=== PATIENT | female | born 1995 | race American Indian/Alaskan Native ===

== ENCOUNTER 2019-03-15 04:57 | Emergency (ER) | payer MEDICAID ==
[2019-03-15 05:05] VITALS: BP 101/51
[2019-03-15] MEDS ORDERED: REGLAN IV ONE (05:50)
[2019-03-15] MEDS ORDERED: PEPCID IV ONE (05:51)
[2019-03-15] MEDS ORDERED: NACL 0.9% 1000 ML 1,000 ML IV ONE (05:51)
[2019-03-15] MEDS ORDERED: TYLENOL PO ONE (05:51)
[2019-03-15 06:18] LABS: Basophils % (Auto) 0.7 % (0.0-1.8); Eosinophils % (Auto) 0.2 % (0.0-4.3); Hematocrit 32.5 % (30.3-42.9); Hemoglobin 11.3 gm/dl (10.1-14.3); Lymphocytes % (Auto) 22.5 % (13.4-35.0); Mean Corpuscular HGB Conc 35 % (30-34); Mean Corpuscular Volume 88 fl (79-97); Monocytes # (Auto) 0.4 K/mm3 (0.0-0.8); Monocytes % (Auto) 9.4 % (0.0-7.3); Red Blood Count 3.68 M/mm3 (3.65-5.03); Red Cell Distribution Width 12.9 % (13.2-15.2)
[2019-03-15 06:19] LABS: Platelet Count 99 K/mm3 (140-440)
--- NOTE | 2019-03-15 06:43 | Emergency Department Report ---
ED General Adult HPI - General Chief complaint: Chest Pain Stated complaint: 16 WEEKS PREG/CHEST PAIN Time Seen by Provider: 03/15/19 05:45 Source: patient, EMS Mode of arrival: Ambulatory Limitations: No Limitations - History of Present Illness Initial comments: Patient is a [age]-year-old -[place] female who is approximately 16 weeks gestation who presents to the ED with acute onset persistent nasal and sinus congestion, dry cough, left-sided chest wall pain with intermittent nausea and vomiting for the last 2 days. Patient states that she has not been able to keep anything down and therefore has not been able to eat in the last 12 hours because of persistent nausea and vomiting. Patient denies shortness of breath, abdominal pain, vaginal bleeding, dysuria, urinary frequency and urgency, dizziness, headache, fever, chills, change in vision or sore throat. MD Complaint: Nausea, vomiting, chest pain, cough -: Sudden, days(s) (2) Location: chest Radiation: non-radiation Severity scale (0 -10): 5 Quality: aching, sharp Improves with: none Worsens with: movement Associated Symptoms: denies other symptoms, chest pain, cough, loss of appetite, malaise, nausea/vomiting. denies: confusion, diaphoresis, fever/chills, headaches, rash, seizure, shortness of breath, syncope, weakness Treatments Prior to Arrival: none - Related Data Previous Rx's Medication Instructions Recorded Last Taken Type Promethazine [Phenergan] 25 mg PO Q6HR PRN #30 tab 03/15/19 Unknown Rx Promethazine [Phenergan] 25 mg [place] Q6HR PRN #20 supp.rect 03/15/19 Unknown Rx Ranitidine HCl [Zantac] 150 mg PO Q12H #30 tablet 03/15/19 Unknown Rx Allergies Allergy/AdvReac Type Severity Reaction Status Date / Time Latex, Natural Rubber Allergy Swelling Verified 10/27/14 23:43 ED Review of Systems ROS: Stated complaint: 16 WEEKS PREG/CHEST PAIN Other details as noted in HPI Constitutional: denies: chills, fever Eyes: denies: eye pain, eye discharge, vision change ENT: denies: ear pain, throat pain Respiratory: cough. denies: shortness of breath, wheezing Cardiovascular: chest pain. denies: palpitations Endocrine: no symptoms reported Gastrointestinal: nausea, vomiting. denies: abdominal pain, diarrhea Genitourinary: denies: urgency, dysuria, discharge Musculoskeletal: denies: back pain, joint swelling, arthralgia Skin: denies: rash, lesions Neurological: denies: headache, weakness, paresthesias Psychiatric: denies: anxiety, depression Hematological/Lymphatic: denies: easy bleeding, easy bruising ED Past Medical Hx - Past Medical History Hx Hypertension: Yes (Pre eclampsia) Hx Congestive Heart Failure: No Hx Diabetes: No Hx Deep Vein Thrombosis: No Hx Renal Disease: No Hx Sickle Cell Disease: No Hx Seizures: No Hx Asthma: No Hx COPD: Yes Hx HIV: No - Surgical History Past Surgical History?: No - Social History Smoking Status: Never Smoker Substance Use Type: None - Medications Home Medications: Home Medications Medication Instructions Recorded Confirmed Last Taken Type Promethazine [Phenergan] 25 mg PO Q6HR PRN #30 tab 03/15/19 Unknown Rx Promethazine [Phenergan] 25 mg [place] Q6HR PRN #20 supp.rect 03/15/19 Unknown Rx Ranitidine HCl [Zantac] 150 mg PO Q12H #30 tablet 03/15/19 Unknown Rx ED Physical Exam - General Limitations: No Limitations General appearance: alert, in no apparent distress - Head Head exam: Present: atraumatic, normocephalic, normal inspection - Eye Eye exam: Present: normal appearance, PERRL, EOMI. Absent: scleral icterus Pupils: Present: normal accommodation - ENT ENT exam: Present: normal exam, normal orophraynx, mucous membranes moist, TM's normal bilaterally, normal external ear exam - Neck Neck exam: Present: normal inspection, full ROM. Absent: tenderness - Respiratory Respiratory exam: Present: normal lung sounds bilaterally, chest wall tenderness (Palpable left sided chest wall tenderness). Absent: respiratory distress, wheezes, rales, rhonchi, accessory muscle use - Cardiovascular Cardiovascular Exam: Present: regular rate, normal rhythm, normal heart sounds. Absent: systolic murmur, diastolic murmur, rubs, gallop - GI/Abdominal GI/Abdominal exam: Present: soft, normal bowel sounds. Absent: distended, tenderness, guarding, hyperactive bowel sounds, hypoactive bowel sounds, organomegaly, mass, bruit - Rectal Rectal exam: Present: deferred - Extremities Exam Extremities exam: Present: normal inspection, full ROM, normal capillary refill - Back Exam Back exam: Present: normal inspection, full ROM. Absent: tenderness, CVA tenderness (R), CVA tenderness (L), muscle spasm, paraspinal tenderness, vertebral tenderness - Neurological Exam Neurological exam: Present: alert, oriented X3, CN II-XII intact, normal gait. Absent: motor sensory deficit, reflexes normal - Psychiatric Psychiatric exam: Present: normal affect, normal mood - Skin Skin exam: Present: warm, dry, intact, normal color. Absent: rash ED Course Vital Signs 03/15/19 05:01 Temperature 98.3 F Pulse Rate 100 H Respiratory 18 Rate Blood Pressure 101/51 O2 Sat by Pulse 99 Oximetry - Reevaluation(s) Reevaluation #1: 03/15/19 06:44 Patient is alert and oriented 3 and is not in distress with normal vital signs. EKG shows normal sinus rhythm with ventricular rate of 97 bpm, and no ST or T- wave abnormalities. Labs were drawn and patient returns for nausea and vomiting and pain in the ED. Will review the lab test results and to the patient's symptoms since the chest pain is reproducible on physical exam. Reevaluation #2: 03/15/19 07:18 On reevaluation, the patient has not had any nausea and vomiting in the ED after being treated with antiemetics. Patient past oral fluid challenge. Laboratory results were reviewed and are all unremarkable except for mild hyponatremia and hypokalemia. Patient also received Klor-Con 40 mEq by mouth to mitigate the hypokalemia. On reevaluation, patient feeling better and stronger and was discharged home on medications including antiemetics and, antacids and advised follow-up in [facility] or PCP in 2 days for reevaluation. Patient advised to return to the ED immediately if symptoms get worse. ED Medical Decision Making - Lab Data Result diagrams: 03/15/19 05:55 03/15/19 05:58 - EKG Data EKG shows normal: sinus rhythm Rate: normal - EKG Data Interpretation: normal EKG - Medical Decision Making Patient is alert and oriented 3 and is not in distress with normal vital signs. EKG shows normal sinus rhythm with ventricular rate of 97 bpm, and no ST or T- wave abnormalities. Labs were drawn and patient returns for nausea and vomiting and pain in the ED. Will review the lab test results and to the patient's symptoms since the chest pain is reproducible on physical exam. 0715: On reevaluation, the patient has not had any nausea and vomiting in the ED after being treated with antiemetics. Patient past oral fluid challenge. Laboratory results were reviewed and are all unremarkable except for mild hyponatremia and hypokalemia. Patient also received Klor-Con 40 mEq by mouth to mitigate the hypokalemia. On reevaluation, patient feeling better and stronger and was discharged home on medications including antiemetics and, antacids and advised follow-up in [facility] or PCP in 2 days for reevaluation. Patient advised to return to the ED immediately if symptoms get worse. - Differential Diagnosis Hyperemesis Gravidarum; Acute costochondritis, acute bronchitis Critical care attestation.: If time is entered above; I have spent that time in minutes in the direct care of this critically ill patient, excluding procedure time. ED Disposition Clinical Impression: Hyperemesis gravidarum, antepartum, Acute costochondritis Disposition: TO HOME OR SELFCARE Is pt being admited?: No Does the pt Need Aspirin: No Condition: Stable Instructions: Hyperemesis Gravidarum (ED), Costochondritis (ED), Gastroesophageal Reflux Disease (ED) Additional Instructions: MAINTAIN A CLEAR LIQUID DIET FOR 12- 24 HOURS, AND FOLLOW UP WITH YOUR [facility] PHYSIC[facility] IN 2 DAYS FOR REEVALUATION. RETURN TO THE ED IMMEDIATELY IF SYMPTOMS GET WORSE. Prescriptions: Promethazine [Phenergan] 25 mg PO Q6HR PRN #30 tab PRN Reason: Nausea Promethazine [Phenergan] 25 mg [place] Q6HR PRN #20 supp.rect PRN Reason: Nausea Ranitidine HCl [Zantac] 150 mg PO Q12H #30 tablet Time of Disposition: 07:24 Print Language: KHMER
[2019-03-15 06:44] LABS: Alanine Aminotransferase 11 units/L (7-56); Albumin 3.5 g/dL (3.9-5); BUN/Creatinine Ratio 13; Blood Urea Nitrogen 5 mg/dL (7-17); Calcium 8.5 mg/dL (8.4-10.2); Hemolysis Index 5
[2019-03-15 07:01] LABS: Bilirubin,Urine NEG (Negative); Blood,Urine NEG (Negative); Mucus,Urine 3+ /HPF; Urobilinogen,Urine < 2.0 mg/dL (<2.0)
[2019-03-15 07:02] LABS: Color,Urine Yellow (Yellow)
[2019-03-15] MEDS ORDERED: K-DUR PO ONE (07:15)
== END 2019-03-15 07:40 | disposition home or self-care (01) ==
LOC: ED 04:57
DX: O21.0 Mild hyperemesis gravidarum (principal); O26.892 Other specified pregnancy related conditions, second trimester; M94.0 Chondrocostal junction syndrome [Tietze]; O99.512 Diseases of the respiratory system complicating pregnancy, second trimester; J44.9 Chronic obstructive pulmonary disease, unspecified; O11.2 Pre-existing hypertension with pre-eclampsia, second trimester; Z91.040 Latex allergy status; Z91.09 Other allergy status, other than to drugs and biological substances; Z3A.16 16 weeks gestation of pregnancy
CPT/HCPCS: 36415; 80053; 81001; 84484; 85025; 93005; 93010; 96361; 96374; 96375; 99284; J2765; J7030

== ENCOUNTER 2019-06-12 19:34 | Outpatient (CLI) | payer MEDICAID ==
[2019-06-12 19:43] VITALS: BP 135/79
== END 2019-06-13 01:09 | disposition home or self-care (01) ==
LOC: TRG 19:34
PROVIDERS: ATTEND Obstetrics & Gynecology
DX: O26.893 Other specified pregnancy related conditions, third trimester (principal); R10.2 Pelvic and perineal pain; Z3A.29 29 weeks gestation of pregnancy
CPT/HCPCS: 59025; 85461; 86850; 86900; 86901; J2790

== ENCOUNTER 2019-07-13 14:12 | Outpatient (CLI) | payer MEDICAID ==
[2019-07-13 14:30] VITALS: BP 131/79
[2019-07-13] MEDS ORDERED: LACTATED RINGERS 500 ML IV ONE (14:35)
[2019-07-13 15:24] LABS: Bilirubin,Urine NEG (Negative); Blood,Urine NEG (Negative); Color,Urine Yellow (Yellow); Mucus,Urine 2+ /HPF
== END 2019-07-13 15:32 | disposition home or self-care (01) ==
LOC: TRG 14:12
PROVIDERS: ATTEND Obstetrics & Gynecology
DX: O26.893 Other specified pregnancy related conditions, third trimester (principal); Z3A.33 33 weeks gestation of pregnancy
CPT/HCPCS: 81001

== ENCOUNTER 2019-07-25 18:21 | Observation (INO) | payer MEDICAID ==
[2019-07-25] MEDS ORDERED: LACTATED RINGERS 1,000 ML IV ONE (19:05)
[2019-07-25 20:11] LABS: Basophils % (Auto) 0.5 % (0.0-1.8); Eosinophils % (Auto) 0.4 % (0.0-4.3); Hematocrit 35.1 % (30.3-42.9); Hemoglobin 12.1 gm/dl (10.1-14.3); Lymphocytes # (Auto) 1.5 K/mm3 (1.2-5.4); Lymphocytes % (Auto) 19.5 % (13.4-35.0); Mean Corpuscular HGB Conc 34 % (30-34); Mean Corpuscular Volume 90 fl (79-97); Monocytes # (Auto) 0.4 K/mm3 (0.0-0.8); Platelet Count 100 K/mm3 (140-440); Red Cell Distribution Width 13.9 % (13.2-15.2)
[2019-07-25 20:31] LABS: Alanine Aminotransferase 5 units/L (7-56); Albumin 3.2 g/dL (3.9-5); BUN/Creatinine Ratio 20; Blood Urea Nitrogen 8 mg/dL (7-17); Calcium 8.5 mg/dL (8.4-10.2); Hemolysis Index 82
[2019-07-25 21:24] LABS: Bacteria,Urine 2+ /HPF (Negative); Bilirubin,Urine NEG (Negative); Blood,Urine NEG (Negative); Color,Urine Yellow (Yellow); Mucus,Urine 2+ /HPF
[2019-07-25] MEDS ORDERED: ACETAMINOPHEN 325 MG TAB PO PRN (22:38)
--- NOTE | 2019-07-26 00:28 | Ultrasound Report ---
Limited OB ultrasound with biophysical profile. 07/25/2019. HISTORY: Evaluate DELILAH. FINDINGS: A single viable intrauterine has heart tones at 169 bpm. DELILAH is normal emil uring 12.3 cm. Biophysical profile is normal at 8 of 8. IMPRESSION: 1. Normal DELILAH of 12.3 cm. 2. Normal biophysical profile of 8 of 8. Signer Name: Anshul Menezes MD Signed: 07/26/2019 12:24 AM Workstation Name: [employer]
--- NOTE | 2019-07-26 00:44 | History and Physical Report ---
History of Present Illness Date of examination: 07/26/19 Date of admission: 07/26/19 00:39 Chief complaint: Elevated blood pressure in triage. History of present illness: 24 year old presents to L&D with possible contractions and elevated blood pressure. Patient reports active movement. Patient denies vaginal bleeding or abdominal pain. Irregular mild contractions: resolved after IV hydration. Patient receives care at [facility] and was able to access records via computer. LMP 11/18/18. EDC 08/25/19, confirmed with 10 week US. significant for the following: Obesity (BMI 40), anemia (supplemented with iron), history of preeclampsia with her last (on LDA therapy), Rh negative, vitamin D deficiency (supplemented with vitamin D), UTI (treated with Augmentin), gestational thrombocytopenia. labs are as follows: O negative, antibody screen negative, rubella immune, hepatitis B surface antigen negative, HIV negative, chlamydia negative, gonorrhea negative, trichomonas negative, varicella nonimmune, hemoglobin electrophoresis normal, pap smear normal, GBS pending. Past History Past Medical History: other (obesity, history of preeclampsia with a previous ) Past Surgical History: no surgical history [facility] History: denies: abnormal PAP smear, chlamydia, gonorrhea, hepatitis B, hepatitis C, herpes, HIV, syphilis, trichomonas Family/Genetic History: none Social history: lives with family, full code. denies: smoking, alcohol abuse, prescription drug abuse, IV drug use - Obstetrical History Expected Date of Delivery: 08/25/19 Actual Gestation: 35 Week(s) 5 Day(s) : 3 Para: 1 Hx # Term Pregnancies: 0 Number of Pregnancies: 1 Spontaneous Abortions: 1 Induced : 0 Number of Living Children: 1 Medications and Allergies Allergies Allergy/AdvReac Type Severity Reaction Status Date / Time Latex, Natural Rubber Allergy Swelling Verified 07/25/19 18:34 Home Medications Medication Instructions Recorded Confirmed Last Taken Type Promethazine [Phenergan] 25 mg PO Q6HR PRN #30 tab 03/15/19 07/25/19 Unknown Rx Promethazine [Phenergan] 25 mg [place] Q6HR PRN #20 supp.rect 03/15/19 07/25/19 Un known Rx raNITIdine HCl [Zantac] 150 mg PO Q12H #30 tablet 03/15/19 07/25/19 Unknown Rx Aspirin [Adult Aspirin] 81 mg PO DAILY 07/25/19 07/25/19 07/25/19 History Vit-Fe Fumar-FA [ 1 tab PO DAILY 07/25/19 07/25/19 07/25/19 History Vitamin] Active Meds: Active Medications Acetaminophen (Tylenol) 650 mg PO Q4H PRN PRN Reason: Pain MILD(1-3)/Fever >100.5/VIRK Multivitamins/Iron/Calcium ( Vitamin) 1 each PO QDAY CHIO Review of Systems Constitutional: no night sweats, no malaise Eyes: no blurred vision, no loss of vision Ears, nose, mouth and throat: headache (mild headache) Cardiovascular: no edema, no syncope, no dyspnea on exertion, no leg edema Respiratory: no cough, no shortness of breath Gastrointestinal: no nausea, no vomiting Genitourinary: contractions, no genital sores Neurological: no weakness, no numbness - Vital Signs Vital signs: Vital Signs Temp Resp Pulse Ox 98.1 F 16 98 07/25/19 18:51 07/25/19 18:51 07/25/19 18:51 Temp Pulse Resp BP Pulse Ox 98.1 F 79 16 138/96 100 07/25/19 18:51 07/25/19 22:37 07/25/19 18:51 07/25/19 22:37 07/25/19 21:07 - Physical Exam Cardiovascular: Regular rate, Normal S1, Normal S2 Lungs: Positive: Clear to auscultation Abdomen: Positive: normal appearance, soft. Negative: distention, tenderness, guarding, rigidity Genitourinary (Female): Positive: normal external genitalia, normal perenium. Negative: perineal/vulvar lesions Uterus: Positive: enlarged. Negative: tender Extremities: Positive: edema (mild pedal edema; no generalized edema). Negative: tenderness - Obstetrical FHR: category 1 Uterine Contraction Monitor Mode: External Cervical Dilatation: 2 Cervical Effacement Percentage: 30 station: -3 Uterine Contraction Pattern: Irregular Uterine Contraction Intensity: Mild Results Result Diagrams: 07/25/19 19:50 07/25/19 19:50 Abnormal lab results 07/25/19 07/25/19 07/25/19 Range/Units 19:50 19:50 19:50 Plt Count 100 L (140-440) K/mm3 Seg Neutrophils % 73.6 H (40.0-70.0) % Carbon Dioxide 18 L (22-30) mmol/L Creatinine 0.4 L (0.7-1.2) mg/dL ALT 5 L (7-56) units/L Lactate Dehydrogenase 221 H (91-180) units/L Albumin 3.2 L (3.9-5) g/dL Urine WBC (Auto) (0.0-6.0) /HPF 07/25/19 Range/Units 20:37 Plt Count (140-440) K/mm3 Seg Neutrophils % (40.0-70.0) % Carbon Dioxide (22-30) mmol/L Creatinine (0.7-1.2) mg/dL ALT (7-56) units/L Lactate Dehydrogenase (91-180) units/L Albumin (3.9-5) g/dL Urine WBC (Auto) 65.0 H (0.0-6.0) /HPF All other labs normal. Assessment and Plan A: at 35 weeks, 5 days gestation. Elevated blood pressures. contractions, resolved. GBS unknown (done at office today but result pending). Category 1 heart rate tracing. History of preeclampsia with a previous . Thrombocytopenia. P: Admit for 23 hour observation. Preeclamptic labs. Protein creatinine ratio, 24 hour urine for total protein. EFM. IV hydration. BP monitoring. If BPs remain elevated, will start Labetalol. US (BPP and DELILAH). Consulted with Dr. Watts re: this patient and above complaints. Dr. Watts states he agrees with above management plan.
[2019-07-26 02:30] LABS: Creatinine,Urine 209.4 mg/dL (0.1-20.0); Protein/Creatinine Ratio,Urine 0.2
[2019-07-26 09:48] VITALS: BP 122/75
[2019-07-26] MEDS ORDERED: PRENATAL VIT27-FE FUMARATE-FOLIC ACID VIT TAB PO SCH (10:00)
--- NOTE | 2019-07-26 10:34 | Event Note ---
Date: 07/26/19 Patient rested well overnight. Her contractions resolved with rest and IV hydration. Her blood pressures also returned to normal. Previous BP elevations were probably pain related per MD. Patient denies headache, visual disturbance, swelling, nausea or vomiting, abdominal or epigastric pain. Patient reports active movement and she denies contractions, vaginal bleeding or spotting, or leaking of fluid. Patient denies any urinary symptoms. Patient states she has a follow up visit already scheduled at [facility] on Sunday07/28/19. Patient has gestational thrombocytopenia and has had this throughout the . Consulted with Dr. Miller re: this patient and all of the above. Dr. Miller states to discharge patient home today. Discussed this plan to discharge patient home with patient; patient states she is in agreement with her plan of care. Advised patient that she must continue to rest at home and return to hospital promptly if any problems or warning signs. Warning signs discussed in detail with patient. Advised patient to continue daily movement counting and return promptly if any decrease in movements or if any signs or symptoms of labor. Advised patient to keep her scheduled follow up visit at [facility] on Sunday07/28/19. Patient voiced understanding of all instructions.
--- NOTE | 2019-07-26 10:36 | Event Note ---
Date: 07/26/19 MD states pt. does not need Rx for antibiotics. UA has negative nitrites. Urine C&S pending. Pt. has no urinary symptoms.
--- NOTE | 2019-07-26 10:40 | Discharge Summary ---
Providers - Providers Date of Admission: 07/26/19 00:39 Date of discharge: 07/26/19 Attending physician: DEJA IRENE None Primary care physician: DEJA IRENE Hospitalization Reason for admission: other ( contractions, elevated blood pressures) Delivery: other (undelivered) Discharge diagnosis: other ( at 35 5/7 weeks undelivered. contractions resolved. Normal BPs. ) Pertinent studies: Labs, US. Hospital course: Normal hospital course. BPP 8/8, normal DELILAH. Category 1 heart rate tracing. contractions resolved. BPs normalized. Condition at discharge: Good Disposition: DC-01 TO HOME OR SELFCARE - Discharge Diagnoses (1) 35 weeks gestation of Status: Acute Plan - Provider Discharge Summary Activity: other (Rest at home, count movements daily, avoid intercourse) Diet: routine (No junk foods or fast foods) Additional instructions: Call your doctor immediately for: * Fever > 100.5 * Vaginal bleeding or leaking of fluid * Severe persistent headache * Shortness of breath * Reddened, hot, painful area to leg or breast - Follow up plan Follow up: DEJA IRENE MD [Primary Care Provider] - 07/28/19
== END 2019-07-26 11:48 | disposition home or self-care (01) ==
LOC: TRG 18:21 → LD 07-26 00:39
PROVIDERS: ADMIT Obstetrics & Gynecology; ATTEND Obstetrics & Gynecology
DX: O26.893 Other specified pregnancy related conditions, third trimester (principal); R03.0 Elevated blood-pressure reading, without diagnosis of hypertension; O99.113 Other diseases of the blood and blood-forming organs and certain disorders involving the immune mechanism complicating pregnancy, third trimester; D69.6 Thrombocytopenia, unspecified; O99.213 Obesity complicating pregnancy, third trimester; E66.9 Obesity, unspecified; O99.013 Anemia complicating pregnancy, third trimester; D64.9 Anemia, unspecified; E55.9 Vitamin D deficiency, unspecified; Z87.59 Personal history of other complications of pregnancy, childbirth and the puerperium; Z3A.35 35 weeks gestation of pregnancy
CPT/HCPCS: 36415; 76815; 76819; 80053; 81001; 82570; 83615; 84156; 84550; 85025; 86850; 86870; 86900; 86901; 87086; G0378; J7120

== ENCOUNTER 2019-08-03 11:58 | Observation (INO) | payer MEDICAID ==
[2019-08-03] MEDS ORDERED: ACETAMINOPHEN 325 MG TAB PO PRN (14:16)
[2019-08-03] MEDS ORDERED: DOCUSATE SODIUM 100 MG CAP PO PRN (14:16)
--- NOTE | 2019-08-03 14:21 | History and Physical Report ---
History of Present Illness Date of examination: 08/03/19 Date of admission: 08/03/2019 Chief complaint: Contractions, elevated blood pressure History of present illness: 24 year old presents to L&D with contractions and elevated blood pressure. Patient denies headache, visual disturbance, abdominal or epigastric pain, or nausea/vomiting. Patient denies leaking of water or vaginal bleeding. Patient reports active movement. Patient received care at [facility] and records are available. LMP 11/18/18. EDC 08/25/19 (based on LMP). significant for the following: obesity (BMI 40), varicella nonimmune, anemia (supplemented with iron), history of preeclampsia with a previous (has been on LDA therapy but states she has not been taking it regularly), gestational thrombocytopenia. labs are as follows: O negative, antibody screen positive, rubella immune, pap smear normal, hepatitis B surface antigen negative, HIV negative, RPR nonreactive, varicella nonimmune, hemoglobin electrophoresis AA, gonorrhea negative, chlamydia negative, trichomonas negative, TSH 1.290, panorama low risk, horizon negative, AFP negative, 1 hour sugar test 78 mg/dl, GBS negative. Patient has received steroids at last admission for [facility]. Past History Past Medical History: other (obesity, history of preeclampsia with a previous ) Past Surgical History: no surgical history [facility] History: denies: chlamydia, gonorrhea, hepatitis B, hepatitis C, herpes, HIV, syphilis, trichomonas Family/Genetic History: diabetes, heart disease, hypertension Social history: single, lives with family, full code. denies: smoking, alcohol abuse, prescription drug abuse, IV drug use - Obstetrical History Expected Date of Delivery: 08/25/19 Actual Gestation: 36 Week(s) 6 Day(s) : 3 Para: 1 Hx # Term Pregnancies: 0 Number of Pregnancies: 1 Spontaneous Abortions: 1 Induced : 0 Number of Living Children: 1 Medications and Allergies Allergies Allergy/AdvReac Type Severity Reaction Status Date / Time Latex, Natural Rubber Allergy Swelling Verified 07/25/19 18:34 Home Medications Medication Instructions Recorded Confirmed Last Taken Type Promethazine [Phenergan] 25 mg PO Q6HR PRN #30 tab 03/15/19 07/25/19 Unknown Rx Promethazine [Phenergan] 25 mg [place] Q6HR PRN #20 supp.rect 07/06/19 11/15/19 Unknown Rx raNITIdine HCl [Zantac] 150 mg PO Q12H #30 tablet 03/15/19 07/25/19 Unknown Rx Aspirin [Adult Aspirin] 81 mg PO DAILY 07/25/19 07/25/19 07/25/19 History Vit-Fe Fumar-FA [ 1 tab PO DAILY 07/25/19 07/25/19 07/25/19 History Vitamin] Active Meds: Active Medications Acetaminophen (Tylenol) 650 mg PO Q4H PRN PRN Reason: Pain MILD(1-3)/Fever >100.5/VIRK Docusate Sodium (Colace) 100 mg PO Q12H PRN PRN Reason: Constipation Lactated Ringer's (Lactated Ringers) 1,000 mls @ 125 mls/hr IV DIRECT CHIO Labetalol HCl (Labetalol) 100 mg PO BID CHIO Multivitamins/Iron/Calcium ( Vitamin) 1 each PO QDAY CHIO Review of Systems All systems: negative (contractions) - Vital Signs Vital signs: Vital Signs Pulse Pulse Ox 81 98 08/03/19 12:39 08/03/19 12:39 Temp Pulse Resp BP Pulse Ox 98.3 F 71 12 146/76 99 08/03/19 12:44 08/03/19 14:10 08/03/19 12:44 08/03/19 14:10 08/03/19 13:54 - Physical Exam Cardiovascular: Regular rate, Normal S1, Normal S2 Lungs: Positive: Clear to auscultation Abdomen: Positive: normal appearance, soft. Negative: distention, tenderness, guarding, rigidity Genitourinary (Female): Positive: normal external genitalia, normal perenium. Negative: perineal/vulvar lesions Vagina: Positive: normal moisture Uterus: Positive: enlarged (S=D) Anus/Rectum: Positive: normal perianal skin Extremities: Positive: normal. Negative: tenderness, edema - Obstetrical FHR: category 1 Uterine Contraction Monitor Mode: External Cervical Dilatation: 3 Cervical Effacement Percentage: 50 station: -2 Uterine Contraction Pattern: Irregular Uterine Contraction Intensity: Moderate Results Result Diagrams: 08/03/19 15:00 08/03/19 15:00 All other labs normal. Assessment and Plan A: at 36 6/7 weeks gestation. Elevated blood pressure. Early labor versus false labor. P: Admit. Continuous EFM. Preeclamptic labs. Serial BPs. 24 hour urine for total protein. Consulted with Dr. Meraz re: patient; informed Dr. Meraz re: pt. history, elevated blood pressures and low platelet count. Dr. Meraz orders to continue oral Labetalol and repeat platelet count in 6 hours; he states no need to start magnesium sulfate at this time.
[2019-08-03 14:26] LABS: Bilirubin,Urine NEG (Negative); Blood,Urine NEG (Negative); Color,Urine Yellow (Yellow); Mucus,Urine 3+ /HPF
[2019-08-03 14:33] LABS: Amphetamine Screen,Urine PRESUMPTIVE NEGATIVE; Benzodiazepines Screen,Urine PRESUMPTIVE NEGATIVE; Cannabinoid Screen,Urine PRESUMPTIVE NEGATIVE; Cocaine Screen,Urine PRESUMPTIVE NEGATIVE; Methadone Screen,Urine PRESUMPTIVE NEGATIVE; Opiate Screen,Urine PRESUMPTIVE NEGATIVE
[2019-08-03] MEDS ORDERED: LACTATED RINGERS 1,000 ML IV SCH (15:00)
[2019-08-03] MEDS ORDERED: PRENATAL VIT27-FE FUMARATE-FOLIC ACID VIT TAB PO SCH (15:00)
[2019-08-03 15:23] LABS: Hematocrit 36.5 % (30.3-42.9); Hemoglobin 12.3 gm/dl (10.1-14.3); Mean Corpuscular HGB Conc 34 % (30-34); Mean Corpuscular Volume 92 fl (79-97); Red Blood Count 3.98 M/mm3 (3.65-5.03); Red Cell Distribution Width 14.4 % (13.2-15.2)
[2019-08-03 15:27] LABS: Platelet Count 84 K/mm3 (140-440)
[2019-08-03 15:46] LABS: Alanine Aminotransferase 6 units/L (7-56); Albumin 3.6 g/dL (3.9-5); BUN/Creatinine Ratio 18; Blood Urea Nitrogen 7 mg/dL (7-17); Calcium 8.9 mg/dL (8.4-10.2); Hemolysis Index 12
[2019-08-03 15:47] LABS: Uric Acid 4.6 mg/dL (3.5-7.6)
[2019-08-04 00:38] LABS: Alanine Aminotransferase 6 units/L (7-56); Albumin 3.3 g/dL (3.9-5); BUN/Creatinine Ratio 12; Blood Urea Nitrogen 6 mg/dL (7-17); Calcium 9.1 mg/dL (8.4-10.2); Hemolysis Index 19
--- NOTE | 2019-08-04 12:45 | Progress Note ---
Assessment and Plan - Patient Problems (1) 37 weeks gestation of Current Visit: Yes Status: Acute (2) Gestational hypertension Current Visit: Yes Status: Acute Qualifiers: Trimester: third trimester Qualified Code(s): O13.3 - Gestational [-induced] hypertension without significant proteinuria, third trimester Plan to address problem: BPs stable - asymptomatic On Labetalol 100mg PO BID (3) Gestational thrombocytopenia without hemorrhage, antepartum Current Visit: No Status: Chronic Plan to address problem: Platelet 84 and 86 respectively Subjective - Subjective Date of service: 08/04/19 Principal diagnosis: IUP @ 37 weeks 0 day; Gestational Hypertension Interval history: see H&P Patient reports: movement normal, other (denies headache, visual disturbances or RUQ pain), no loss of fluid, no vaginal bleeding, no contractions Objective - Vital Signs Vital Signs: Vital Signs - 12hr 08/04/19 08/04/19 08/04/19 00:46 00:51 01:00 Pulse Rate 71 77 75 Blood Pressure O2 Sat by Pulse 99 100 99 Oximetry 08/04/19 08/04/19 08/04/19 01:05 01:10 01:15 Pulse Rate 73 66 68 Blood Pressure 113/58 O2 Sat by Pulse 100 99 99 Oximetry 08/04/19 08/04/19 08/04/19 01:20 01:25 01:30 Pulse Rate 68 63 72 Blood Pressure O2 Sat by Pulse 100 98 100 Oximetry 08/04/19 08/04/19 08/04/19 01:34 01:35 01:40 Pulse Rate 71 71 71 Blood Pressure 115/57 O2 Sat by Pulse 99 99 Oximetry 08/04/19 08/04/19 08/04/19 01:45 01:50 01:55 Pulse Rate 69 89 68 Blood Pressure O2 Sat by Pulse 99 99 100 Oximetry 08/04/19 08/04/19 08/04/19 02:00 02:04 02:05 Pulse Rate 71 82 88 Blood Pressure 126/64 O2 Sat by Pulse 100 100 Oximetry 08/04/19 08/04/19 08/04/19 02:10 02:15 02:30 Pulse Rate 74 79 79 Blood Pressure O2 Sat by Pulse 100 100 100 Oximetry 08/04/19 08/04/19 08/04/19 02:35 02:40 02:45 Pulse Rate 68 77 72 Blood Pressure 122/59 O2 Sat by Pulse 100 99 100 Oximetry 08/04/19 08/04/19 08/04/19 02:50 02:55 03:00 Pulse Rate 72 77 65 Blood Pressure O2 Sat by Pulse 100 100 100 Oximetry 08/04/19 08/04/19 08/04/19 03:04 03:12 03:17 Pulse Rate 75 82 90 Blood Pressure 122/59 O2 Sat by Pulse 100 98 Oximetry 08/04/19 08/04/19 08/04/19 03:22 03:27 03:32 Pulse Rate 65 58 L 75 Blood Pressure O2 Sat by Pulse 100 100 100 Oximetry 08/04/19 08/04/19 08/04/19 03:34 03:37 03:42 Pulse Rate 69 67 63 Blood Pressure 106/55 O2 Sat by Pulse 98 98 Oximetry 08/04/19 08/04/19 08/04/19 03:47 03:52 03:57 Pulse Rate 61 62 64 Blood Pressure O2 Sat by Pulse 98 98 98 Oximetry 08/04/19 08/04/19 08/04/19 04:02 04:04 04:07 Pulse Rate 63 61 68 Blood Pressure 104/55 O2 Sat by Pulse 98 98 Oximetry 08/04/19 08/04/19 08/04/19 04:12 04:17 04:22 Pulse Rate 67 66 79 Blood Pressure O2 Sat by Pulse 98 98 99 Oximetry 08/04/19 08/04/19 08/04/19 04:27 04:32 04:35 Pulse Rate 73 75 72 Blood Pressure 104/59 O2 Sat by Pulse 99 99 Oximetry 08/04/19 08/04/19 08/04/19 04:37 04:50 04:55 Pulse Rate 75 62 74 Blood Pressure O2 Sat by Pulse 99 100 99 Oximetry 08/04/19 08/04/19 08/04/19 05:00 05:04 05:05 Pulse Rate 81 70 75 Blood Pressure 130/60 O2 Sat by Pulse 99 99 Oximetry 08/04/19 08/04/19 08/04/19 05:10 05:15 05:20 Pulse Rate 81 67 76 Blood Pressure O2 Sat by Pulse 99 99 99 Oximetry 08/04/19 08/04/19 08/04/19 05:25 05:30 05:34 Pulse Rate 74 71 78 Blood Pressure 139/70 O2 Sat by Pulse 99 98 Oximetry 08/04/19 08/04/19 08/04/19 05:35 05:40 05:45 Pulse Rate 104 H 65 83 Blood Pressure O2 Sat by Pulse 100 99 100 Oximetry 08/04/19 08/04/19 08/04/19 05:50 05:52 05:55 Pulse Rate 73 83 86 Blood Pressure O2 Sat by Pulse 98 91 99 Oximetry 08/04/19 08/04/19 08/04/19 06:00 06:05 06:10 Pulse Rate 74 77 106 H Blood Pressure 134/81 O2 Sat by Pulse 99 100 99 Oximetry 08/04/19 08/04/19 08/04/19 06:15 06:20 06:25 Pulse Rate 69 68 74 Blood Pressure O2 Sat by Pulse 100 100 100 Oximetry 08/04/19 08/04/19 08/04/19 06:30 06:34 06:35 Pulse Rate 74 83 75 Blood Pressure 118/61 O2 Sat by Pulse 98 98 Oximetry 08/04/19 08/04/19 08/04/19 07:05 08:04 08:34 Pulse Rate 79 68 79 Blood Pressure 112/66 106/61 140/71 O2 Sat by Pulse Oximetry 08/04/19 08/04/19 08/04/19 09:04 09:35 10:04 Pulse Rate 78 72 68 Blood Pressure 118/68 115/58 117/68 O2 Sat by Pulse Oximetry 08/04/19 08/04/19 08/04/19 10:34 11:04 11:34 Pulse Rate 84 90 83 Blood Pressure 109/55 122/63 100/51 O2 Sat by Pulse Oximetry 08/04/19 08/04/19 12:04 12:34 Pulse Rate 86 86 Blood Pressure 120/74 118/72 O2 Sat by Pulse Oximetry - Exam Cardiovascular: Regular rate Lungs: Clear to auscultation FHR: auscultation normal, category 1 FHR comments: baseline 140, moderate variability, 15x15 accels, no decels Extremities: normal - Labs Labs: Abnormal Labs 08/03/19 08/03/19 08/03/19 15:00 15:00 23:45 Plt Count 84 L 86 L Sodium 134 L Carbon Dioxide 16 L BUN Creatinine 0.4 L ALT 6 L Albumin 3.6 L 08/03/19 23:45 Plt Count Sodium Carbon Dioxide 20 L BUN 6 L Creatinine 0.5 L ALT 6 L Albumin 3.3 L Laboratory Results - last 24 hr 08/03/19 08/03/19 08/03/19 14:05 14:05 14:57 WBC RBC Hgb Hct MCV MCH MCHC RDW Plt Count Sodium Potassium Chloride Carbon Dioxide Anion Gap BUN Creatinine Estimated GFR BUN/Creatinine Ratio Glucose Uric Acid Calcium Total Bilirubin AST ALT Alkaline Phosphatase Lactate Dehydrogenase Total Protein Albumin Albumin/Globulin Ratio Urine Color Yellow Urine Turbidity Clear Urine pH 6.0 Ur Specific [place] 1.026 Urine Protein 30 mg/dl Urine Glucose (UA) Neg Urine Ketones Tr Urine Blood Neg Urine Nitrite Neg Urine Bilirubin Neg Urine Urobilinogen 2.0 Ur Leukocyte Esterase Neg Urine WBC (Auto) 2.0 Urine RBC (Auto) 4.0 U Epithel Cells (Auto) 4.0 Urine Mucus 3+ Urine Opiates Screen Presumptive negative Urine Methadone Screen Presumptive negative Ur Barbiturates Screen Presumptive negative Ur Phencyclidine Scrn Presumptive negative Ur Amphetamines Screen Presumptive negative U Benzodiazepines Scrn Presumptive negative Urine Cocaine Screen Presumptive negative U Marijuana (THC) Screen Presumptive negative Drugs of Abuse Note Disclamer Blood Type O NEGATIVE Antibody Screen Negative 08/03/19 08/03/19 08/03/19 15:00 15:00 15:00 WBC 6.9 RBC 3.98 Hgb 12.3 Hct 36.5 MCV 92 MCH 31 MCHC 34 RDW 14.4 Plt Count 84 L Sodium 134 L Potassium 3.6 Chloride 101.7 Carbon Dioxide 16 L Anion Gap 20 BUN 7 Creatinine 0.4 L Estimated GFR > 60 BUN/Creatinine Ratio 18 Glucose 68 Uric Acid 4.6 Calcium 8.9 Total Bilirubin 0.30 AST 14 ALT 6 L Alkaline Phosphatase 93 Lactate Dehydrogenase 120 Total Protein 6.9 Albumin 3.6 L Albumin/Globulin Ratio 1.1 Urine Color Urine Turbidity Urine pH Ur Specific [place] Urine Protein Urine Glucose (UA) Urine Ketones Urine Blood Urine Nitrite Urine Bilirubin Urine Urobilinogen Ur Leukocyte Esterase Urine WBC (Auto) Urine RBC (Auto) U Epithel Cells (Auto) Urine Mucus Urine Opiates Screen Urine Methadone Screen Ur Barbiturates Screen Ur Phencyclidine Scrn Ur Amphetamines Screen U Benzodiazepines Scrn Urine Cocaine Screen U Marijuana (THC) Screen Drugs of Abuse Note Blood Type Antibody Screen 08/03/19 08/03/19 23:45 23:45 WBC RBC Hgb Hct MCV MCH MCHC RDW Plt Count 86 L Sodium 138 Potassium 4.1 Chloride 104.2 Carbon Dioxide 20 L Anion Gap 18 BUN 6 L Creatinine 0.5 L Estimated GFR > 60 BUN/Creatinine Ratio 12 Glucose 88 Uric Acid Calcium 9.1 Total Bilirubin 0.30 AST 13 ALT 6 L Alkaline Phosphatase 85 Lactate Dehydrogenase Total Protein 6.7 Albumin 3.3 L Albumin/Globulin Ratio 1.0 Urine Color Urine Turbidity Urine pH Ur Specific [place] Urine Protein Urine Glucose (UA) Urine Ketones Urine Blood Urine Nitrite Urine Bilirubin Urine Urobilinogen Ur Leukocyte Esterase Urine WBC (Auto) Urine RBC (Auto) U Epithel Cells (Auto) Urine Mucus Urine Opiates Screen Urine Methadone Screen Ur Barbiturates Screen Ur Phencyclidine Scrn Ur Amphetamines Screen U Benzodiazepines Scrn Urine Cocaine Screen U Marijuana (THC) Screen Drugs of Abuse Note Blood Type Antibody Screen
--- NOTE | 2019-08-04 13:02 | Discharge Summary ---
Providers - Providers Date of Admission: 08/03/19 16:03 Date of discharge: 08/04/19 Attending physician: CLAUDIO MOFFETT MD Primary care physician: CLAUDIO MOFFETT MD Hospitalization Reason for admission: IUP at term, other (Gestational Hypertension) Discharge diagnosis: other (IUP at 37 weeks undelivered) Condition at discharge: Stable Disposition: DC-01 TO HOME OR SELFCARE - Discharge Diagnoses (1) 37 weeks gestation of Status: Acute (2) Gestational hypertension Status: Acute Qualifiers: Trimester: third trimester Qualified Code(s): O13.3 - Gestational [-induced] hypertension without significant proteinuria, third trimester Comment: Reviewed signs and symptoms of pre-eclampsia Continue Labetalol 100mg PO BID (3) Gestational thrombocytopenia without hemorrhage, antepartum Status: Chronic Plan - Discharge Medications Prescriptions: labetaloL [Labetalol 100mg TAB] 100 mg PO BID #60 tablet - Provider Discharge Summary Activity: routine, no sex for 6 weeks, no heavy lifting 4 weeks, no strenuous exercise Diet: routine Instructions: routine Additional instructions: [] Smoking cessation referral if applicable(refer to patient education folder for contact #) [] Refer to [facility] Booklet Call your doctor immediately for: * Fever > 100.5 * Heavy vaginal bleeding ( >1 pad per hour) * Severe persistent headache * Shortness of breath * Reddened, hot, painful area to leg or breast * Drainage or odor from incision. * Keep incision clean and dry at all times and follow doctor's instructions regarding bathing/showering - Follow up plan Follow up: CLAUDIO MOFFETT MD [Primary Care Provider] - 08/06/19 (Follow up at [facility] in 2 days for blood pressure check)
[2019-08-04 13:07] VITALS: BP 116/58
[2019-08-04 15:44] LABS: Creatinine,Urine 129.4 mg/dL (0.1-20.0); Protein/Creatinine Ratio,Urine 0.1
== END 2019-08-04 14:00 | disposition home or self-care (01) ==
LOC: TRG 11:58 → LD 16:03
PROVIDERS: ADMIT Obstetrics & Gynecology; ATTEND Obstetrics & Gynecology
DX: O62.9 Abnormality of forces of labor, unspecified (principal); O13.3 Gestational [pregnancy-induced] hypertension without significant proteinuria, third trimester; O99.113 Other diseases of the blood and blood-forming organs and certain disorders involving the immune mechanism complicating pregnancy, third trimester; D69.6 Thrombocytopenia, unspecified; O99.213 Obesity complicating pregnancy, third trimester; O34.219 Maternal care for unspecified type scar from previous cesarean delivery; Z87.59 Personal history of other complications of pregnancy, childbirth and the puerperium; E66.9 Obesity, unspecified; Z79.82 Long term (current) use of aspirin; Z79.899 Other long term (current) drug therapy; Z91.040 Latex allergy status; Z3A.37 37 weeks gestation of pregnancy; Z68.38 Body mass index [BMI] 38.0-38.9, adult
CPT/HCPCS: 36415; 80053; 80307; 81001; 82570; 83615; 84156; 84550; 85027; 85049; 86850; 86900; 86901; G0378; J7120

== ENCOUNTER 2019-08-04 20:47 | Inpatient (IN) | payer MEDICAID ==
[2019-08-04] MEDS ORDERED: TERBUTALINE 1 MG/1 ML INJ SUB-Q PRN (22:53)
[2019-08-04] MEDS ORDERED: TERBUTALINE 1 MG/1 ML INJ IVP PRN (22:53)
[2019-08-04] MEDS ORDERED: MINERAL OIL 30 ML ORAL LIQD PO PRN (22:53)
[2019-08-04] MEDS ORDERED: ePHEDrine SULFATE 50 MG/1 ML INJ IV PRN (22:53)
[2019-08-04] MEDS ORDERED: BUTORPHANOL 2 MG/1 ML INJ IV PRN (22:53)
[2019-08-04] MEDS ORDERED: AMPICILLIN/NS 2 GM/100 ML 2 GM/100 ML BAG IV ONE (22:53)
[2019-08-04] MEDS ORDERED: LIDOCAINE (2%) 20 MG/1 ML VIAL 20 ML MDV INFILTRATI ONE (22:53)
[2019-08-04] MEDS ORDERED: fentaNYL 100 MCG/2 ML INJ IV PRN (22:53)
[2019-08-04] MEDS ORDERED: OXYTOCIN 20 UNIT/1000ML DRIP 20 UNITS/1,000 ML BAG IV SCH (23:00)
[2019-08-05] MEDS ORDERED: OXYTOCIN DRIP 30,000 MILLIUNITS/500 ML BAG IV ONE (00:22)
[2019-08-05] MEDS: LACTATED RINGERS 1,000 ML IV SCH ×2 (00:41→13:39)
[2019-08-05 01:11] LABS: Hematocrit 35.8 % (30.3-42.9); Hemoglobin 12.1 gm/dl (10.1-14.3); Mean Corpuscular HGB Conc 34 % (30-34); Mean Corpuscular Volume 91 fl (79-97); Red Blood Count 3.91 M/mm3 (3.65-5.03)
[2019-08-05 01:12] LABS: Hematocrit 35.8 % (30.3-42.9); Mean Corpuscular HGB Conc 34 % (30-34); Mean Corpuscular Volume 91 fl (79-97); Red Blood Count 3.93 M/mm3 (3.65-5.03); Red Cell Distribution Width 14.2 % (13.2-15.2)
[2019-08-05] MEDS: ONDANSETRON 4 MG/2 ML INJ IV PRN ×2 (01:15→11:16)
[2019-08-05 01:21] LABS: Platelet Count 93 K/mm3 (140-440)
[2019-08-05 02:25] LABS: Platelet Count 94 K/mm3 (140-440)
[2019-08-05] MEDS: AMPICILLIN/NS 1 GM/50 ML 1 GM/50 ML BAG IV SCH ×3 (03:58→13:38)
[2019-08-05] MEDS: BUTORPHANOL 2 MG/1 ML INJ IV PRN ×2 (05:45→08:30)
[2019-08-05] MEDS ORDERED: LIDOCAINE (2%) 20 MG/1 ML VIAL 20 ML MDV INFILTRATI ONE (09:11)
--- NOTE | 2019-08-05 10:38 | Anesthesia Consultation ---
Anesthesia Consult and Med Hx Date of service: 08/05/19 - Airway Anesthetic Teeth Evaluation: Good ROM Head & Neck: Adequate Mental/Hyoid Distance: Adequate Mallampati Class: Class II Intubation Access Assessment: Good - Pulmonary Exam CTA: Yes - Cardiac Exam Cardiac Exam: RRR - Pre-Operative Health Status ASA Pre-Surgery Classification: ASA2, Emergency Proposed Anesthetic Plan: Epidural, Spinal - Pulmonary Hx Asthma: No COPD: Yes Hx Pneumonia: No - Cardiovascular System Hx Hypertension: No (H/o pre-e) - Central Nervous System Hx Seizures: No Hx Psychiatric Problems: No - Endocrine Hx Renal Disease: No Hx End Stage Renal Disease: No Hx Hypothyroidism: No Hx Hyperthyroidism: No - Hematic Hx Anemia: Yes (Thrombocytopenia, pt denies bleeding/bruising ) Hx Sickle Cell Disease: No - Other Systems Hx Alcohol Use: No Hx Obesity: Yes
[2019-08-05] MEDS ORDERED: NALOXONE 2 MG/2 ML INJ IV PRN (10:39)
[2019-08-05] MEDS ORDERED: ePHEDrine SULFATE 50 MG/1 ML INJ IV PRN (10:39)
--- NOTE | 2019-08-05 10:53 | History and Physical Report ---
History of Present Illness Date of examination: 08/05/19 Date of admission: 08/04/19 22:29 Chief complaint: Active labor History of present illness: 24 yo, @ 37.1 wks gestation, initiated care with [facility] at 6.3 wks gestation. complicated by Morbid obesity; Rh negative status; Varicella non-immune status Anemia and Thrombocytopenia. Her care was co- managed by [facility]. She presents to [facility] with reports of regular painful ctxs. Reports positive FM. Denies VB or LOF. Labs: O negative, antibody positive; PAP normal; Rubella immune; VDRL non-reactive; Urine culture negative; HBsAg negative HIV negative; platelets 151k; Varicella non-immune; Gc/Chlamydia/Trich negative; Vit D 19.6; Cystic fibrosis negative; Hgb A1c 4.8; TSH 1.290; NSAFP/Multiple markers negative; 24hr urine prot 70; 1 hr Gtt 78; GBS unknown. Past History Past Medical History: other (Anemia; Morbid obesity) Social history: single, lives with family, full code. denies: alcohol abuse, prescription drug abuse, IV drug use - Obstetrical History Expected Date of Delivery: 08/25/19 Actual Gestation: 37 Week(s) 1 Day(s) : 3 Para: 1 Hx # Term Pregnancies: 0 Number of Pregnancies: 1 Spontaneous Abortions: 1 Number of Living Children: 1 #1 Infant Gender: Male year: Method of Delivery: Vaginal Gestational age at delivery: 31 Complications: other (Pre-eclampsia) Medications and Allergies Allergies Allergy/AdvReac Type Severity Reaction Status Date / Time Latex, Natural Rubber Allergy Mild Swelling Verified 08/04/19 23:57 Home Medications Medication Instructions Recorded Confirmed Last Taken Type Aspirin [Adult Aspirin] 81 mg PO DAILY 07/25/19 08/04/19 08/04/19 History Vit-Fe Fumar-FA [ 1 tab PO DAILY 07/25/19 08/04/19 08/04/19 History Vitamin] labetaloL [Labetalol 100mg TAB] 100 mg PO BID #60 tablet 08/04/19 08/04/19 Unknown Rx Active Meds: Active Medications Butorphanol Tartrate (Stadol) 1 mg IV Q2H PRN PRN Reason: Labor Pain Last Admin: 08/05/19 05:45 Dose: 1 mg Documented by: Ephedrine Sulfate (Ephedrine Sulfate) 10 mg IV Q2M PRN PRN Reason: Hypotension Fentanyl (Sublimaze) 100 mcg IV Q2H PRN PRN Reason: Labor Pain Oxytocin/Sodium Chloride (Pitocin/Ns 20 Unit/1000ml Drip) 20 units in 1,000 mls @ 125 mls/hr IV DIRECT CHIO Lactated Ringer's (Lactated Ringers) 1,000 mls @ 125 mls/hr IV DIRECT CHIO Last Admin: 08/05/19 00:41 Dose: 125 mls/hr Documented by: Ampicillin Sodium (Ampicillin/Ns 1 Gm/50 Ml) 1 gm in 50 mls @ 100 mls/hr IV Q4HR CHIO; Protocol Last Admin: 08/05/19 03:58 Dose: 100 mls/hr Documented by: Mineral Oil (Mineral Oil) 30 ml PO QHS PRN PRN Reason: Constipation Ondansetron HCl (Zofran) 4 mg IV Q4H PRN PRN Reason: Nausea And Vomiting Last Admin: 08/05/19 01:15 Dose: 4 mg Documented by: Terbutaline Sulfate (Brethine) 0.25 mg SUB-Q ONCE PRN PRN Reason: Hyperstimulation/Hypertonicity Terbutaline Sulfate (Brethine) 0.25 mg IVP ONCE PRN PRN Reason: Hyperstimulation/Hypertonicity Review of Systems All systems: negative Genitourinary: contractions - Vital Signs Vital signs: Vital Signs Pulse BP 98 H 129/60 08/04/19 22:22 08/04/19 22:22 Temp Pulse Resp BP Pulse Ox 98.3 F 84 26 H 142/79 100 08/05/19 08:35 08/05/19 10:33 08/05/19 09:59 08/05/19 10:31 08/05/19 10:33 - Physical Exam Breasts: Positive: deferred Cardiovascular: Regular rate Lungs: Positive: Normal air movement Abdomen: Positive: other (gravid) Uterus: Positive: enlarged (S>D) Extremities: Positive: normal, edema Deep Tendon Reflex Grade: Normal +2 - Obstetrical FHR: category 1 Uterine Contraction Monitor Mode: External Cervical Dilatation: 6 Cervical Effacement Percentage: 70 station: -1 Uterine Contraction Frequency (min): 2-4 Uterine Contraction Pattern: Irregular Uterine Tone Measurement Phase: Resting Uterine Contraction Intensity: Moderate Results Result Diagrams: 08/05/19 00:34 Abnormal lab results 08/05/19 08/05/19 Range/Units 00:34 00:34 Plt Count 93 L 94 L (140-440) K/mm3 All other labs normal. Assessment and Plan - Patient Problems (1) 37 weeks gestation of Current Visit: No Status: Acute Plan to address problem: Admit to L & D Expectant management Epidural as desired GBS prophylaxis per protocol Anticipate (2) Morbid obesity Current Visit: Yes Status: Acute (3) Rh negative status during Current Visit: Yes Status: Acute
[2019-08-05] MEDS ORDERED: fentaNYL-BUPIV 2 MCG/ML-0.125% 200 MCG/100 ML BAG EPIDURAL SCH (11:00)
[2019-08-05] MEDS ORDERED: ONDANSETRON 4 MG/2 ML INJ IV PRN (14:50)
[2019-08-05] MEDS ORDERED: PROMETHAZINE 25 MG RECT SUPP PR PRN (14:50)
[2019-08-05] MEDS ORDERED: LANOLIN/ZINC/DIMETHICONE (LANSINOH) 7 GM TP PRN (14:50)
[2019-08-05] MEDS ORDERED: PROMETHAZINE 25 MG TAB PO PRN (14:50)
[2019-08-05] MEDS ORDERED: diphenhydrAMINE 25 MG CAP PO PRN (14:50)
[2019-08-05] MEDS ORDERED: MAGNESIUM HYDROXIDE (MOM) ORAL LIQD UDC PO PRN (14:50)
[2019-08-05] MEDS ORDERED: WITCH HAZEL/ GLYCERIN PAD TP PRN (14:50)
--- NOTE | 2019-08-05 14:59 | Procedure Note ---
OB Delivery Note - Delivery Date of Delivery: 08/05/19 ([id number]) Surgeon: RAMU PINTO (RACHEL) Estimated blood loss: 200cc - Vaginal Delivery presentation: vertex Delivery position: OA (RAJ with compound hand) Delivery induction: none Delivery monitor: external FHT, external uterine Route of delivery: Delivery placenta: spontaneous (1428, ronaldo, disposed per hospital policy) Delivery cord: 3 umbilical vessels Episiotomy: none Delivery laceration: other (right periurethral, repaired) Delivery repair: vicryl (3.0 SH) Anesthesia: epidural Delivery comments: of viable, crying female , placed directly to maternal abdomen. Cord double clamped and cut by FOB after cessation of pulsation. Placenta spontaneously delivered, ronaldo, disposed per hospital policy. Uterus firm @ U-1, hemostasis maintained. Right periurethral laceration, repaired without difficulty. Baby and mom safe, stable and bonding well. - A at 1 minute: 8 at 5 minutes: 9 Infant Gender: Female (Weight: 2669 gms (5lbs 14 ozs) 18.5 inches)
[2019-08-05] MEDS: IBUPROFEN 600 MG TAB PO SCH (15:19)
--- NOTE | 2019-08-05 15:29 | Post Anesthesia Evaluation ---
- Post Anesthesia Evaluation Patient Participated: Yes Airway Patent: Yes Stable Respiratory Function: Yes Nausea/Vomiting: No Temp > 96.8F: Yes Pain Manageable: Yes Adequeate Hydration: Yes Anesthesia Complications: No Block Receding Appropriately: Yes Patient on Ventilator: No
[2019-08-06 05:25] LABS: Hematocrit 30.4 % (30.3-42.9); Hemoglobin 10.1 gm/dl (10.1-14.3)
[2019-08-06] MEDS: oxyCODONE /ACETAMINOPHEN 5-325MG TAB PO PRN ×2 (08:52→16:30)
[2019-08-06] MEDS ORDERED: PRENATAL VIT27-FE FUMARATE-FOLIC ACID VIT TAB PO SCH (10:00)
[2019-08-06] MEDS ORDERED: FERROUS SULFATE 325 MG TAB PO SCH (10:00)
--- NOTE | 2019-08-06 12:24 | Progress Note ---
Assessment and Plan A: PP Day #1 Stable P: Follow Routine Orders Depo Provera 150mg IM x 1 dose Continue FeSO4 325mg PO BID at home D/C Home in the AM RTO in 6 Weeks Subjective - Subjective Date of service: 08/06/19 Patient reports: appetite normal, voiding normally, pain well controlled, flatus, ambulating normally : doing well Objective - Vital Signs Latest vital signs: Vital Signs Temp Pulse Resp BP BP BP Pulse Ox 08/06/19 07:53 97.9 F 63 18 119/57 08/06/19 00:03 98.1 F 61 18 132/72 99 08/05/19 22:15 98.1 F 67 18 106/45 98 08/05/19 17:00 98.3 F 64 20 115/62 08/05/19 16:19 61 116/62 08/05/19 16:03 61 132/67 08/05/19 15:49 73 131/63 08/05/19 15:33 68 131/68 08/05/19 15:19 22 08/05/19 15:18 73 133/74 08/05/19 15:03 64 140/79 08/05/19 14:53 72 137/68 08/05/19 14:24 96.9 F L 64 18 140/79 100 08/05/19 14:19 58 L 89 08/05/19 14:14 76 96 08/05/19 14:10 82 89 08/05/19 14:09 80 100 08/05/19 14:04 96 H 100 08/05/19 13:59 84 99 08/05/19 13:54 90 99 08/05/19 13:50 78 138/85 08/05/19 13:49 80 98 08/05/19 13:44 81 99 08/05/19 13:39 81 99 08/05/19 13:34 87 99 08/05/19 13:29 89 99 08/05/19 13:24 102 H 100 08/05/19 13:21 75 148/77 08/05/19 13:19 90 99 08/05/19 13:14 79 99 08/05/19 13:09 76 99 08/05/19 13:04 89 99 08/05/19 12:59 100 H 99 08/05/19 12:54 63 100 08/05/19 12:51 85 159/82 08/05/19 12:49 93 H 100 08/05/19 12:44 85 100 08/05/19 12:39 64 100 08/05/19 12:34 94 H 99 08/05/19 12:29 82 100 08/05/19 12:24 91 H 99 Intake and Output 08/05/19 08/06/19 08/06/19 22:59 06:59 14:59 Intake Total 1200 480 Output Total 900 Balance 300 480 Intake: Oral 1200 480 Output: Urine 900 Void 900 Other: Total, Intake Amount 1200 480 Total, Output Amount 900 # Voids Void 1 - Exam Breasts: Present: normal Cardiovascular: Present: Regular rate Lungs: Present: Clear to auscultation, Normal air movement Abdomen: Present: normal appearance, soft, normal bowel sounds Uterus: Present: normal, firm, fundal height below umbilicus Extremities: Present: normal
--- NOTE | 2019-08-06 12:26 | Discharge Summary ---
Providers - Providers Date of Admission: 08/04/19 22:29 Date of discharge: 08/07/19 Attending physician: CLAUDIO MOFFETT MD Primary care physician: CLAUDIO MOFFETT MD Hospitalization Reason for admission: active labor Delivery: Episiotomy: none Laceration: none Other procedures: none complications: none Discharge diagnosis: IUP at term delivered baby: female Condition at discharge: Good Disposition: DC-01 TO HOME OR SELFCARE Plan - Provider Discharge Summary Activity: routine, no sex for 6 weeks, no heavy lifting 4 weeks, no strenuous exercise Diet: routine Instructions: routine Additional instructions: [] Smoking cessation referral if applicable(refer to patient education folder for contact #) [] Refer to [facility] Booklet Call your doctor immediately for: * Fever > 100.5 * Heavy vaginal bleeding ( >1 pad per hour) * Severe persistent headache * Shortness of breath * Reddened, hot, painful area to leg or breast * Drainage or odor from incision. * Keep incision clean and dry at all times and follow doctor's instructions regarding bathing/showering - Follow up plan Follow up: CLAUDIO MOFFETT MD [Primary Care Provider] - 6 Weeks
[2019-08-06] MEDS ORDERED: medroxyPROGESTERone ACETATE 150 MG/ML SYRINGE IM ONE ×2 (13:24→18:36)
[2019-08-06] MEDS: IBUPROFEN 600 MG TAB PO SCH (16:30)
[2019-08-06 17:44] VITALS: BP 125/84
== END 2019-08-06 20:30 | disposition home or self-care (01) | DRG 775 ==
LOC: TRG 20:47 → LD 22:29 → OBSVTOIN 22:29 → LD 23:43 → OB 08-05 17:06
PROVIDERS: ADMIT Obstetrics & Gynecology; ATTEND Obstetrics & Gynecology
PROC: 10E0XZZ Delivery of Products of Conception, External Approach (ICD-10-PCS; principal; 2019-08-05)
PROC: 3E0R3BZ Introduction of Anesthetic Agent into Spinal Canal, Percutaneous Approach (ICD-10-PCS; 2019-08-05)
PROC: 00HU33Z Insertion of Infusion Device into Spinal Canal, Percutaneous Approach (ICD-10-PCS; 2019-08-05)
PROC: 0UQMXZZ Repair Vulva, External Approach (ICD-10-PCS; 2019-08-05)
PROC: 3E0234Z Introduction of Serum, Toxoid and Vaccine into Muscle, Percutaneous Approach (ICD-10-PCS; 2019-08-05)
DX: O99.214 Obesity complicating childbirth (principal); E66.01 Morbid (severe) obesity due to excess calories; O71.82 Other specified trauma to perineum and vulva; O32.6XX0 Maternal care for compound presentation, not applicable or unspecified; O99.52 Diseases of the respiratory system complicating childbirth; J44.9 Chronic obstructive pulmonary disease, unspecified; O99.02 Anemia complicating childbirth; D64.9 Anemia, unspecified; Z88.8 Allergy status to other drugs, medicaments and biological substances; Z91.040 Latex allergy status; Z3A.37 37 weeks gestation of pregnancy; Z37.0 Single live birth; Z79.82 Long term (current) use of aspirin; Z67.41 Type O blood, Rh negative
CPT/HCPCS: 36415; 80053; 80307; 81001; 82570; 83615; 84156; 84550; 85014; 85018; 85027; 85049; 85461; 86592; 86850; 86900; 86901; 96360; 96365; G0378; J0290; J0595; J1050; J2405; J2590; J2790; J7120

== ENCOUNTER 2019-08-08 14:53 | Emergency (ER) | payer MEDICAID ==
--- NOTE | 2019-08-08 15:24 | Emergency Department Report ---
<ASIM FREEDMAN - Last Filed: 08/08/19 15:55> ED General Adult HPI - General Chief complaint: Chest Pain Stated complaint: CHEST PAIN DIZZINESS Time Seen by Provider: 08/08/19 15:22 Source: patient, EMS Mode of arrival: Stretcher Limitations: No Limitations - History of Present Illness Initial comments: 24-year-old -[place] female patient with history of preeclampsia presents to the ED with complaints of left-sided chest pain and lightheadedness 2 days. Patient is 3 days . She is and states she had a normal vaginal . She also complains of shortness of breath only with lying down. She denies leg pain or swelling, history of DVT/PE, recent long travel, or recent surgeries. She rates the chest pain at an 8/10 in severity and describes it as a stabbing pain. She denies any headache, vision changes, numbness/tingling/weakness in her limbs, head trauma, cough/hemoptysis, or abdominal pain. Patient also denies any previous history of heart issues or smoking. She states the chest pain seems to have begun after taking ibuprofen MD Complaint: Chest Pain, Lightheadedness -: Sudden Severity scale (0 -10): 8 Consistency: constant Worsens with: none Treatments Prior to Arrival: none - Related Data Home Medications Medication Instructions Recorded Confirmed Last Taken Aspirin [Adult Aspirin] 81 mg PO DAILY 07/25/19 08/04/19 08/04/19 Vit-Fe Fumar-FA [ 1 tab PO DAILY 07/25/19 08/04/19 08/04/19 Vitamin] Previous Rx's Medication Instructions Recorded Last Taken Type labetaloL [Labetalol 100mg TAB] 100 mg PO BID #60 tablet 08/04/19 Unknown Rx cephALEXin [Keflex] 500 mg PO BID 7 Days #14 cap 08/08/19 Unknown Rx Allergies Allergy/AdvReac Type Severity Reaction Status Date / Time Latex, Natural Rubber Allergy Mild Swelling Verified 08/04/19 23:57 ED Past Medical Hx - Past Medical History Hx Hypertension: No (H/o pre-e) Hx Congestive Heart Failure: No Hx Diabetes: No Hx Deep Vein Thrombosis: No Hx Renal Disease: No Hx Sickle Cell Disease: No Hx Seizures: No Hx Asthma: No Hx COPD: No Hx HIV: No - Surgical History Past Surgical History?: No - Social History Smoking Status: Never Smoker Substance Use Type: None - Medications Home Medications: Home Medications Medication Instructions Recorded Confirmed Last Taken Type Aspirin [Adult Aspirin] 81 mg PO DAILY 07/25/19 08/04/19 08/04/19 History Vit-Fe Fumar-FA [ 1 tab PO DAILY 07/25/19 08/04/19 08/04/19 History Vitamin] labetaloL [Labetalol 100mg TAB] 100 mg PO BID #60 tablet 08/04/19 08/04/19 Unknown Rx cephALEXin [Keflex] 500 mg PO BID 7 Days #14 cap 08/08/19 Unknown Rx ED Physical Exam - General Limitations: No Limitations General appearance: alert, in no apparent distress - Head Head exam: Present: atraumatic, normocephalic - Eye Eye exam: Present: normal appearance. Absent: scleral icterus - ENT ENT exam: Present: normal exam - Neck Neck exam: Present: normal inspection, full ROM. Absent: lymphadenopathy - Respiratory Respiratory exam: Present: normal lung sounds bilaterally. Absent: respiratory distress, wheezes, rales, rhonchi, chest wall tenderness - Cardiovascular Cardiovascular Exam: Present: regular rate, normal rhythm. Absent: systolic murmur, diastolic murmur, rubs, gallop ED Disposition Clinical Impression: SOB (shortness of breath) Chest pain Qualifiers: Chest pain type: unspecified Qualified Code(s): R07.9 - Chest pain, unspecified UTI (urinary tract infection) Qualifiers: Urinary tract infection type: acute cystitis Hematuria presence: without hematuria Qualified Code(s): N30.00 - Acute cystitis without hematuria Disposition: TO HOME OR SELFCARE Condition: Stable Instructions: Chest Pain (ED), Urinary Tract Infection in Women (ED), Dyspnea (ED) Additional Instructions: Please take medication as prescribed. Increase your fluid intake over the next several days. Please follow-up with the clearing supervisor the next 2-3 days. Please follow-up with a primary care doctor or your SERVER SECURITY ADMINISTRATOR in the next 2-3 days. Please monitor your blood pressure and take your blood pressure 3 times a day and show it to your primary care doctor. eat a low sodium diet. Return to the em ergency room for any new or worsening symptoms. Prescriptions: cephALEXin [Keflex] 500 mg PO BID 7 Days #14 cap Referrals: MONIQUE HENDERSON MD [Primary Care Provider] - 2-3 Days JOSELO PARKER MD [Staff Physician] - 2-3 Days Print Language: PERSIAN <KIMBERLY SESAY. - Last Filed: 08/09/19 02:54> ED Review of Systems ROS: Stated complaint: CHEST PAIN DIZZINESS Other details as noted in HPI ED Course Vital Signs 08/08/19 08/08/19 08/08/19 14:55 14:58 15:00 Temperature 98.1 F Pulse Rate 57 L 77 61 Pulse Rate [ Sitting] Respiratory 12 22 21 Rate Blood Pressure 153/74 Blood Pressure 153/74 [Left] Blood Pressure [Sitting] O2 Sat by Pulse 99 Oximetry 08/08/19 08/08/19 08/08/19 15:07 15:16 15:30 Temperature Pulse Rate 59 L 55 L Pulse Rate [ Sitting] Respiratory 15 14 18 Rate Blood Pressure 153/74 153/80 Blood Pressure [Left] Blood Pressure [Sitting] O2 Sat by Pulse 100 100 96 Oximetry 08/08/19 08/08/19 08/08/19 15:46 16:00 16:16 Temperature Pulse Rate 55 L 54 L 56 L Pulse Rate [ Sitting] Respiratory 17 16 18 Rate Blood Pressure 153/80 144/82 144/82 Blood Pressure [Left] Blood Pressure [Sitting] O2 Sat by Pulse 100 Oximetry 08/08/19 08/08/19 08/08/19 16:30 16:46 16:56 Temperature Pulse Rate 55 L 57 L Pulse Rate [ 59 L Sitting] Respiratory 18 11 L Rate Blood Pressure 153/85 153/80 Blood Pressure [Left] Blood Pressure 166/88 [Sitting] O2 Sat by Pulse Oximetry 08/08/19 08/08/19 08/08/19 17:00 17:16 17:30 Temperature Pulse Rate 56 L 63 53 L Pulse Rate [ Sitting] Respiratory 15 12 12 Rate Blood Pressure 149/79 149/79 146/83 Blood Pressure [Left] Blood Pressure [Sitting] O2 Sat by Pulse Oximetry 08/08/19 20:14 Temperature Pulse Rate 53 L Pulse Rate [ Sitting] Respiratory 18 Rate Blood Pressure Blood Pressure 134/83 [Left] Blood Pressure [Sitting] O2 Sat by Pulse 100 Oximetry ED Medical Decision Making - Lab Data Result diagrams: 08/08/19 15:40 08/08/19 15:40 Lab Results 08/08/19 08/08/19 08/08/19 Range/Units 15:40 15:40 15:40 WBC 7.2 (4.5-11.0) K/mm3 RBC 3.92 (3.65-5.03) M/mm3 Hgb 11.9 (10.1-14.3) gm/dl Hct 35.6 (30.3-42.9) % MCV 91 (79-97) fl MCH 31 (28-32) pg MCHC 34 (30-34) % RDW 14.3 (13.2-15.2) % Plt Count 122 L (140-440) K/mm3 Lymph % (Auto) 12.8 L (13.4-35.0) % [place] % (Auto) 3.2 (0.0-7.3) % Eos % (Auto) 1.2 (0.0-4.3) % Baso % (Auto) 0.6 (0.0-1.8) % Lymph # 0.9 L (1.2-5.4) K/mm3 [place] # 0.2 (0.0-0.8) K/mm3 Eos # 0.1 (0.0-0.4) K/mm3 Baso # 0.0 (0.0-0.1) K/mm3 Seg Neutrophils % 82.2 H (40.0-70.0) % Seg Neutrophils # 5.9 (1.8-7.7) K/mm3 D-Dimer (0-234) ng/mlDDU Sodium 139 (137-145) mmol/L Potassium 3.6 (3.6-5.0) mmol/L Chloride 103.7 (98-107) mmol/L Carbon Dioxide 18 L (22-30) mmol/L Anion Gap 21 mmol/L BUN 4 L (7-17) mg/dL Creatinine 0.5 L (0.7-1.2) mg/dL Estimated GFR > 60 ml/min BUN/Creatinine Ratio 8 % Glucose 73 (65-100) mg/dL Calcium 8.8 (8.4-10.2) mg/dL Total Bilirubin 0.40 (0.1-1.2) mg/dL AST 36 (5-40) units/L ALT 23 (7-56) units/L Alkaline Phosphatase 92 (35-129) units/L Troponin T < 0.010 (0.00-0.029) ng/mL Total Protein 7.1 (6.3-8.2) g/dL Albumin 3.4 L (3.9-5) g/dL Albumin/Globulin Ratio 0.9 % Urine Color (Yellow) Urine Turbidity (Clear) Urine pH (5.0-7.0) Ur Specific Colon (1.003-1.030) Urine Protein (Negative) mg/dL Urine Glucose (UA) (Negative) mg/dL Urine Ketones (Negative) mg/dL Urine Blood (Negative) Urine Nitrite (Negative) Urine Bilirubin (Negative) Urine Urobilinogen (<2.0) mg/dL Ur Leukocyte Esterase (Negative) Urine WBC (Auto) (0.0-6.0) /HPF Urine RBC (Auto) (0.0-6.0) /HPF U Epithel Cells (Auto) (0-13.0) /HPF 08/08/19 08/08/19 Range/Units 15:55 17:02 WBC (4.5-11.0) K/mm3 RBC (3.65-5.03) M/mm3 Hgb (10.1-14.3) gm/dl Hct (30.3-42.9) % MCV (79-97) fl MCH (28-32) pg MCHC (30-34) % RDW (13.2-15.2) % Plt Count (140-440) K/mm3 Lymph % (Auto) (13.4-35.0) % [place] % (Auto) (0.0-7.3) % Eos % (Auto) (0.0-4.3) % Baso % (Auto) (0.0-1.8) % Lymph # (1.2-5.4) K/mm3 [place] # (0.0-0.8) K/mm3 Eos # (0.0-0.4) K/mm3 Baso # (0.0-0.1) K/mm3 Seg Neutrophils % (40.0-70.0) % Seg Neutrophils # (1.8-7.7) K/mm3 D-Dimer 609.68 H (0-234) ng/mlDDU Sodium (137-145) mmol/L Potassium (3.6-5.0) mmol/L Chloride (98-107) mmol/L Carbon Dioxide (22-30) mmol/L Anion Gap mmol/L BUN (7-17) mg/dL Creatinine (0.7-1.2) mg/dL Estimated GFR ml/min BUN/Creatinine Ratio % Glucose (65-100) mg/dL Calcium (8.4-10.2) mg/dL Total Bilirubin (0.1-1.2) mg/dL AST (5-40) units/L ALT (7-56) units/L Alkaline Phosphatase (35-129) units/L Troponin T (0.00-0.029) ng/mL Total Protein (6.3-8.2) g/dL Albumin (3.9-5) g/dL Albumin/Globulin Ratio % Urine Color Straw (Yellow) Urine Turbidity Clear (Clear) Urine pH 7.0 (5.0-7.0) Ur Specific Colon 1.005 (1.003-1.030) Urine Protein <15 mg/dl (Negative) mg/dL Urine Glucose (UA) Neg (Negative) mg/dL Urine Ketones 20 (Negative) mg/dL Urine Blood Lg (Negative) Urine Nitrite Neg (Negative) Urine Bilirubin Neg (Negative) Urine Urobilinogen < 2.0 (<2.0) mg/dL Ur Leukocyte Esterase Lg (Negative) Urine WBC (Auto) 44.0 H (0.0-6.0) /HPF Urine RBC (Auto) 3.0 (0.0-6.0) /HPF U Epithel Cells (Auto) 3.0 (0-13.0) /HPF - Radiology Data Radiology results: report reviewed Vascular Lab Report Signed Patient: ASYA PARKER MR#: [id number] : 1995 Acct:[id number] Age/Sex: 24 / F ADM Date: 08/08/19 Loc: ED Attending Dr: Ordering Physician: ASIM FREEDMAN Date of Service: 08/08/19 Procedure(s): VL venous duplex LE RT Accession Number(s): [id number] cc: ASIM FREEDMAN DUPLEX DOPPLER RIGHT LOWER EXTREMITY VEINS INDICATION: Right leg pain, elevated d-dimer FINDINGS: There is no thrombus within the deep veins of the right lower extremity from the common femoral to the calf veins. There is normal compression and augmentation on spectral analysis. IMPRESSION: No sonographic evidence for DVT in the right lower extremity. Signer Name: Charles Wiley MD Signed: 08/08/2019 6:06 PM Workstation Name: [email or web address] Transcribed By: SURENDRA Dictated By: Charles Wiley MD Electronically Authenticated By: Charles Wiley MD CTA CHEST WITH IV CONTRAST INDICATION / CLINICAL INFORMATION: chest pain, +dimer. TECHNIQUE: Axial CT images were obtained through the chest after injection of 100 mL Omnipaque 350 IV contrast. 3 plane MIP and/or 3D reconstructions were produced. All CT scans at this location are performed using CT dose reduction for ALARA by means of automated exposure control. COMPARISON: None available. FINDINGS: PULMONARY ARTERIES: No pulmonary emboli. THORACIC AORTA: No significant abnormality. HEART: No significant abnormality. CORONARY ARTERIES: No significant calcification. PLEURA: No pleural effusion. No pneumothorax. LYMPH NODES: No significant adenopathy. LUNGS: No acute air space or interstitial disease. ADDITIONAL FINDINGS: None. UPPER ABDOMEN: No acute findings. SKELETAL STRUCTURES: No significant osseous abnormality. IMPRESSION: 1. No CT evidence for pulmonary embolism. 2. No acute findings. Signer Name: Lucille Shields MD Signed: 08/08/2019 7:12 PM Workstation Name: [email or web address] CT head/brain wo con INDICATION: dizziness. TECHNIQUE: Routine CT head without contrast. All CT scans at this location are performed using CT dose reduction for ALARA by means of automated exposure control. COMPARISON: None. FINDINGS: BRAIN / INTRACRANIAL CONTENTS: No acute hemorrhage, mass effect, midline shift, or hydrocephalus. No appreciable acute large territorial or lacunar infarct. No chronic infarct or focal atrophy. Normal brain volume and ventricular/sulcal size for age. ORBITS: No significant abnormality of visualized orbits. SINUSES / MASTOIDS: No significant abnormality of visualized sinuses and mastoid air cells. ADDITIONAL FINDINGS: None. IMPRESSION: 1. No acute intracranial abnormality on noncontrast CT of the brain. Signer Name: Lucille Shields MD Signed: 08/08/2019 7:08 PM Workstation Name: [id number] CHEST 1 VIEW 08/08/2019 3:24 PM INDICATION / CLINICAL INFORMATION: shortness of breath. COMPARISON: None available. FINDINGS: SUPPORT DEVICES: None. HEART / MEDIASTINUM: No significant abnormality. LUNGS / PLEURA: No significant pulmonary or pleural abnormality. No pneumothorax. ADDITIONAL FINDINGS: No significant additional findings. IMPRESSION: 1. No acute findings. Signer Name: Charles Wiley MD Signed: 08/08/2019 3:54 PM Workstation Name: [email or web address] - Medical Decision Making Signed out by Asim freedman PA-C pending CTA chest and CT head CTA chest and CT head with no acute process Vitals are stable repeat blood pressure is 134/83 without any intervention Labs are stable UA shows evidence of UTI patient given 1 g of ceftriaxone and sent home with prescription for Keflex advised pt to Please take medication as prescribed. Increase your fluid intake over the next several days. Please follow-up with the clearing supervisor the next 2-3 days. Please follow-up with a primary care doctor or your SERVER SECURITY ADMINISTRATOR in the next 2-3 days. Please monitor your blood pressure and take your blood pressure 3 times a day and show it to your primary care doctor. eat a low sodium diet. Return to the emergency room for any new or worsening symptoms. Critical care attestation.: If time is entered above; I have spent that time in minutes in the direct care of this critically ill patient, excluding procedure time. ED Disposition Is pt being admited?: No Does the pt Need Aspirin: No Time of Disposition: 19:40
--- NOTE | 2019-08-08 15:58 | XRay Report ---
CHEST 1 VIEW 08/08/2019 3:24 PM INDICATION / CLINICAL INFORMATION: shortness of breath. COMPARISON: None available. FINDINGS: SUPPORT DEVICES: None. HEART / MEDIASTINUM: No significant abnormality. LUNGS / PLEURA: No significant pulmonary or pleural abnormality. No pneumothorax. ADDITIONAL FINDINGS: No significant additional findings. IMPRESSION: 1. No acute findings. Signer Name: Charles Wiley MD Signed: 08/08/2019 3:54 PM Workstation Name: [id number]
[2019-08-08 16:13] LABS: Basophils % (Auto) 0.6 % (0.0-1.8); Eosinophils # (Auto) 0.1 K/mm3 (0.0-0.4); Eosinophils % (Auto) 1.2 % (0.0-4.3); Hematocrit 35.6 % (30.3-42.9); Hemoglobin 11.9 gm/dl (10.1-14.3); Lymphocytes # (Auto) 0.9 K/mm3 (1.2-5.4); Lymphocytes % (Auto) 12.8 % (13.4-35.0); Mean Corpuscular HGB Conc 34 % (30-34); Mean Corpuscular Volume 91 fl (79-97); Monocytes # (Auto) 0.2 K/mm3 (0.0-0.8); Monocytes % (Auto) 3.2 % (0.0-7.3); Platelet Count 122 K/mm3 (140-440); Red Blood Count 3.92 M/mm3 (3.65-5.03); Red Cell Distribution Width 14.3 % (13.2-15.2)
[2019-08-08 16:17] LABS: Alanine Aminotransferase 23 units/L (7-56); Albumin 3.4 g/dL (3.9-5); BUN/Creatinine Ratio 8; Blood Urea Nitrogen 4 mg/dL (7-17); Calcium 8.8 mg/dL (8.4-10.2); Hemolysis Index 3
[2019-08-08] MEDS ORDERED: SODIUM CHLORIDE 0.9% 1000 ML 1,000 ML IV ONE (16:56)
[2019-08-08 17:11] LABS: Bilirubin,Urine NEG (Negative); Blood,Urine LG (Negative); Color,Urine Straw (Yellow); Protein,Urine <15 mg/dL mg/dL (Negative); Urobilinogen,Urine < 2.0 mg/dL (<2.0)
--- NOTE | 2019-08-08 18:11 | Vascular Lab Report ---
DUPLEX DOPPLER RIGHT LOWER EXTREMITY VEINS INDICATION: Right leg pain, elevated d-dimer FINDINGS: There is no thrombus within the deep veins of the right lower extremity from the common femoral to th e calf veins. There is normal compression and augmentation on spectral analysis. IMPRESSION: No sonographic evidence for DVT in the right lower extremity. Signer Name: Charles Wiley MD Signed: 08/08/2019 6:06 PM Workstation Name: [id number]
[2019-08-08] MEDS ORDERED: cefTRIAXone/NS 1 GM/50 ML 1 GM/50 ML BAG IV ONE (18:14)
--- NOTE | 2019-08-08 19:12 | Cat Scan Report ---
CT head/brain wo con INDICATION: dizziness. TECHNIQUE: Routine CT head without contrast. All CT scans at this location are performed using CT dos e reduction for ALARA by means of automated exposure control. COMPARISON: None. FINDINGS: BRAIN / INTRACRANIAL CONTENTS: No acute hemorrhage, mass effect, midline shift, or hydrocephalus. No appreciable acute large territorial or lacunar infarct. No chronic infarct or focal atrophy. Normal b rain volume and ventricular/sulcal size for age. ORBITS: No significant abnormality of visualized orbits. SINUSES / MASTOIDS: No significant abnormality of visualized sinuses and mastoid air cells. ADDITIONAL FINDINGS: None. IMPRESSION: 1. No acute intracranial abnormality on noncontrast CT of the brain. Signer Name: Lucille Shields MD Signed: 08/08/2019 7:08 PM Workstation Name: [id number]
--- NOTE | 2019-08-08 19:16 | Cat Scan Report ---
CTA CHEST WITH IV CONTRAST INDICATION / CLINICAL INFORMATION: chest pain, +dimer. TECHNIQUE: Axial CT images were obtained through the chest after injection of 100 mL Omnipaque 350 IV contrast. 3 plane MIP and/or 3D reconstructions were produced. All CT scans at this location are performed usin g CT dose reduction for VINCENTRA by means of automated exposure control. COMPARISON: None available. FINDINGS: PULMONARY ARTERIES: No pulmonary emboli. THORACIC AORTA: No significant abnormality. HEART: No significant abnormality. CORONARY ARTERIES: No significant calcification. PLEURA: No pleural effusion. No pneumothorax. LYMPH NODES: No significant adenopathy. LUNGS: No acute air space or interstitial disease. ADDITIONAL FINDINGS: None. UPPER ABDOMEN: No acute findings. SKELETAL STRUCTURES: No significant osseous abnormality. IMPRESSION: 1. No CT evidence for pulmonary embolism. 2. No acute findings. Signer Name: Lucille Shields MD Signed: 08/08/2019 7:12 PM Workstation Name: [id number]
[2019-08-08 20:15] VITALS: BP 134/83
== END 2019-08-08 20:14 | disposition home or self-care (01) ==
LOC: ED 14:53
DX: N39.0 Urinary tract infection, site not specified (principal); R07.9 Chest pain, unspecified; R06.02 Shortness of breath
CPT/HCPCS: 36415; 70450; 71045; 71275; 80053; 81001; 84484; 85025; 85379; 87086; 93005; 93010; 93971; 96361; 96365; 99285; J0696; J7030; Q9967

== ENCOUNTER 2021-10-13 18:34 | Emergency (ER) | payer MEDICAID ==
[2021-10-13 19:19] LABS: Bilirubin,Urine NEG (Negative); Blood,Urine NEG (Negative); Color,Urine Yellow (Yellow); Mucus,Urine FEW /HPF; Protein,Urine <15 mg/dL mg/dL (Negative); Urobilinogen,Urine < 2.0 mg/dL (<2.0)
[2021-10-13 19:26] LABS: HCG Qualitative,Urine Positive (Negative)
--- NOTE | 2021-10-13 21:39 | Ultrasound Report ---
ULTRASOUND OBSTETRIC INDICATION / CLINICAL INFORMATION: pain in . Clinical Gestational Age (GA) in weeks, days: 4, 2 TECHNIQUE: Transabdominal and Transvaginal. COMPARISON: None available. FINDINGS: GESTATIONAL SAC: Not seen YOLK SAC: Not seen EMBRYO/FETUS: Not seen ADNEXA: Within the right adnexa and separate from the right ovary there is a fluid sac measuring appr oximately 1.7 x 0.6 x 1.7 cm with a average length of 1.3 cm. The bilateral ovaries are unremarkable. FREE FLUID: There is a small amount of free fluid. ADDITIONAL FINDINGS: None. IMPRESSION: 1. No evidence of intrauterine gestation. 2. There is a right adnexal mass which has ultrasound imaging characteristics suggestive of a gestati onal sac. This has a average diameter 1.3 cm and is concerning for a right adnexal ectopic . CRITICAL RESULT Time of Discovery (MAIL HANDLER ASSISTANT/CDT): 8:30 PM Time of Communication (MAIL HANDLER ASSISTANT/CDT): 8:34 PM Licensed Practitioner Receiving Report: Dr. Guardado Read-Back Performed: Yes. Signer Name: Levi Grace DO Signed: 10/13/2021 9:34 PM Workstation Name: [id number]
--- NOTE | 2021-10-13 21:39 | Ultrasound Report ---
ULTRASOUND OBSTETRIC INDICATION / CLINICAL INFORMATION: pain in . Clinical Gestational Age (GA) in weeks, days: 4, 2 TECHNIQUE: Transabdominal and Transvaginal. COMPARISON: None available. FINDINGS: GESTATIONAL SAC: Not seen YOLK SAC: Not seen EMBRYO/FETUS: Not seen ADNEXA: Within the right adnexa and separate from the right ovary there is a fluid sac measuring appr oximately 1.7 x 0.6 x 1.7 cm with a average length of 1.3 cm. The bilateral ovaries are unremarkable. FREE FLUID: There is a small amount of free fluid. ADDITIONAL FINDINGS: None. IMPRESSION: 1. No evidence of intrauterine gestation. 2. There is a right adnexal mass which has ultrasound imaging characteristics suggestive of a gestati onal sac. This has a average diameter 1.3 cm and is concerning for a right adnexal ectopic . CRITICAL RESULT Time of Discovery (JUNIOR HIGH SCHOOL PRINCIPAL/CDT): 8:30 PM Time of Communication (JUNIOR HIGH SCHOOL PRINCIPAL/CDT): 8:34 PM Licensed Practitioner Receiving Report: Dr. Guardado Read-Back Performed: Yes. Signer Name: Levi Grace DO Signed: 10/13/2021 9:34 PM Workstation Name: [id number]
[2021-10-13 22:09] LABS: Basophils # (Auto) 0.2 K/mm3 (0.0-0.1); Basophils % (Auto) 1.8 % (0.0-1.8); Eosinophils # (Auto) 0.1 K/mm3 (0.0-0.4); Eosinophils % (Auto) 1.1 % (0.0-4.3); Hematocrit 39.2 % (30.3-42.9); Hemoglobin 12.8 gm/dl (10.1-14.3); Lymphocytes # (Auto) 2.9 K/mm3 (1.2-5.4); Lymphocytes % (Auto) 29.7 % (13.4-35.0); Mean Corpuscular HGB Conc 33 % (30-34); Mean Corpuscular Volume 90 fl (79-97); Monocytes # (Auto) 0.7 K/mm3 (0.0-0.8); Monocytes % (Auto) 6.9 % (0.0-7.3); Red Blood Count 4.38 M/mm3 (3.65-5.03)
[2021-10-13 22:14] LABS: Platelet Count 95 K/mm3 (140-440)
[2021-10-13 22:27] LABS: Alanine Aminotransferase 9 units/L (7-56); Albumin 4.1 g/dL (3.9-5); Blood Urea Nitrogen 13 mg/dL (7-17); Calcium 9.3 mg/dL (8.4-10.2); Hemolysis Index 16
[2021-10-13 22:33] LABS: BUN/Creatinine Ratio 19
--- NOTE | 2021-10-13 22:52 | Emergency Department Report ---
ED Abdominal Pain HPI - General Chief Complaint: Abdominal Pain Stated Complaint: UNK WKS/CRAMPING ABD PAIN Time Seen by Provider: 10/13/21 21:37 Source: patient Mode of arrival: Ambulatory Limitations: No Limitations - History of Present Illness Initial Comments: Patient is a 26-year-old F Swazi female who is on her third with 1 live 1 miscarriage who is presenting with some left low back and lower abdominal discomfort since yesterday. Patient's last menstrual period was between September 13 and . States she feels like she is going to start her menses but there is no bleeding. Denies any fevers chills. - Related Data Home Medications Medication Instructions Recorded Confirmed Last Taken Aspirin [Adult Aspirin] 81 mg PO DAILY 07/25/19 08/04/19 08/04/19 Vit-Fe Fumar-FA [ 1 tab PO DAILY 07/25/19 08/04/19 08/04/19 Vitamin] Previous Rx's Medication Instructions Recorded Last Taken Type labetaloL [Labetalol 100mg TAB] 100 mg PO BID #60 tablet 08/04/19 Unknown Rx cephALEXin [Keflex] 500 mg PO BID 7 Days #14 cap 08/08/19 Unknown Rx Allergies Allergy/AdvReac Type Severity Reaction Status Date / Time Latex, Natural Rubber Allergy Mild Swelling Verified 03/15/20 12:45 ED Review of Systems ROS: Stated complaint: UNK WKS/CRAMPING ABD PAIN Other details as noted in HPI Comment: All other systems reviewed and negative ED Past Medical Hx - Past Medical History Previous Medical History?: Yes Hx Hypertension: Yes (H/o pre-e) Hx Congestive Heart Failure: No Hx Diabetes: No Hx Deep Vein Thrombosis: No Hx Renal Disease: No Hx Sickle Cell Disease: No Hx Seizures: No Hx Asthma: No Hx COPD: No Hx HIV: No - Surgical History Past Surgical History?: No - Social History Smoking Status: Never Smoker Substance Use Type: None - Medications Home Medications: Home Medications Medication Instructions Recorded Confirmed Last Taken Type Aspirin [Adult Aspirin] 81 mg PO DAILY 07/25/19 08/04/19 08/04/19 History Vit-Fe Fumar-FA [ 1 tab PO DAILY 07/25/19 08/04/19 08/04/19 History Vitamin] labetaloL [Labetalol 100mg TAB] 100 mg PO BID #60 tablet 08/04/19 08/04/19 Unknown Rx cephALEXin [Keflex] 500 mg PO BID 7 Days #14 cap 08/08/19 Unknown Rx ED Physical Exam - General Limitations: No Limitations General appearance: alert, in no apparent distress - Head Head exam: Present: atraumatic, normocephalic - Eye Eye exam: Present: normal appearance, PERRL, EOMI - ENT ENT exam: Present: mucous membranes moist - Neck Neck exam: Present: normal inspection - Respiratory Respiratory exam: Present: normal lung sounds bilaterally. Absent: respiratory distress, wheezes, rales, rhonchi - Cardiovascular Cardiovascular Exam: Present: regular rate, normal rhythm, normal heart sounds. Absent: systolic murmur, diastolic murmur, rubs, gallop - GI/Abdominal GI/Abdominal exam: Present: soft, normal bowel sounds. Absent: distended, tenderness, guarding - Extremities Exam Extremities exam: Present: normal inspection - Back Exam Back exam: Present: normal inspection - Neurological Exam Neurological exam: Present: alert, oriented X3 - Psychiatric Psychiatric exam: Present: normal affect, normal mood - Skin Skin exam: Present: warm, dry, intact, normal color. Absent: rash ED Course Vital Signs 10/13/21 10/13/21 10/13/21 18:43 23:17 23:30 Temperature 98.7 F Pulse Rate 78 67 63 Respiratory 16 16 17 Rate Blood Pressure 124/62 Blood Pressure 112/79 116/76 [Left] O2 Sat by Pulse 100 99 99 Oximetry - Reevaluation(s) Reevaluation #1: 10/14/21 00:01 Dr Em with [facility] [employer]VERTISING STRATEGIST came and examined the patient personally. The patient's discomfort is actually on the opposite side of the findings from the radiologist. He ultrasounded the patient personally and states that his differential diagnosis is a ruptured corpus luteal cyst versus normal IUP versus tubal versus blighted ovum in that order. The plan is that the patient is to return in 48 hours for repeat beta quant. 1. If the quant is decreasing, either the ruptured luteal cyst or a blighted ovum was actually the issue. 2. If the quant doubles he believes that there is normal IUP present. 3. If the quant rises but not by double an ectopic is likely and repeat ultrasound should be performed ED Medical Decision Making - Lab Data Result diagrams: 10/13/21 21:50 10/13/21 21:50 Lab Results 10/13/21 10/13/21 10/13/21 Range/Units 21:50 21:50 21:50 WBC 9.6 (4.5-11.0) K/mm3 RBC 4.38 (3.65-5.03) M/mm3 Hgb 12.8 (10.1-14.3) gm/dl Hct 39.2 (30.3-42.9) % MCV 90 (79-97) fl MCH 29 (28-32) pg MCHC 33 (30-34) % RDW 13.0 L (13.2-15.2) % Plt Count 95 L (140-440) K/mm3 Lymph % (Auto) 29.7 (13.4-35.0) % [place] % (Auto) 6.9 (0.0-7.3) % Eos % (Auto) 1.1 (0.0-4.3) % Baso % (Auto) 1.8 (0.0-1.8) % Lymph # (Auto) 2.9 (1.2-5.4) K/mm3 [place] # (Auto) 0.7 (0.0-0.8) K/mm3 Eos # (Auto) 0.1 (0.0-0.4) K/mm3 Baso # (Auto) 0.2 H (0.0-0.1) K/mm3 Seg Neutrophils % 60.5 (40.0-70.0) % Seg Neutrophils # 5.8 (1.8-7.7) K/mm3 Sodium 138 (137-145) mmol/L Potassium 4.2 (3.6-5.0) mmol/L Chloride 105.4 (98-107) mmol/L Carbon Dioxide 21 L (22-30) mmol/L Anion Gap 16 mmol/L BUN 13 (7-17) mg/dL Creatinine 0.7 (0.6-1.2) mg/dL Estimated GFR > 60 ml/min BUN/Creatinine Ratio 19 % Glucose 91 (65-100) mg/dL Calcium 9.3 (8.4-10.2) mg/dL Total Bilirubin 0.30 (0.1-1.2) mg/dL AST 16 (5-40) units/L ALT 9 (7-56) units/L Alkaline Phosphatase 88 (35-129) units/L Total Protein 7.8 (6.3-8.2) g/dL Albumin 4.1 (3.9-5) g/dL Albumin/Globulin Ratio 1.1 % HCG, Quant 551.3 H (0-4) mIU/mL Urine Color (Yellow) Urine Turbidity (Clear) Urine pH (5.0-7.0) Ur Specific [place] (1.003-1.030) Urine Protein (Negative) mg/dL Urine Glucose (UA) (Negative) mg/dL Urine Ketones (Negative) mg/dL Urine Blood (Negative) Urine Nitrite (Negative) Urine Bilirubin (Negative) Urine Urobilinogen (<2.0) mg/dL Ur Leukocyte Esterase (Negative) Urine WBC (Auto) (0.0-6.0) /HPF Urine RBC (Auto) (0.0-6.0) /HPF U Epithel Cells (Auto) (0-13.0) /HPF Urine Mucus /HPF Urine HCG, Qual (Negative) 10/13/21 Range/Units Unknown WBC (4.5-11.0) K/mm3 RBC (3.65-5.03) M/mm3 Hgb (10.1-14.3) gm/dl Hct (30.3-42.9) % MCV (79-97) fl MCH (28-32) pg MCHC (30-34) % RDW (13.2-15.2) % Plt Count (140-440) K/mm3 Lymph % (Auto) (13.4-35.0) % [place] % (Auto) (0.0-7.3) % Eos % (Auto) (0.0-4.3) % Baso % (Auto) (0.0-1.8) % Lymph # (Auto) (1.2-5.4) K/mm3 [place] # (Auto) (0.0-0.8) K/mm3 Eos # (Auto) (0.0-0.4) K/mm3 Baso # (Auto) (0.0-0.1) K/mm3 Seg Neutrophils % (40.0-70.0) % Seg Neutrophils # (1.8-7.7) K/mm3 Sodium (137-145) mmol/L Potassium (3.6-5.0) mmol/L Chloride (98-107) mmol/L Carbon Dioxide (22-30) mmol/L Anion Gap mmol/L BUN (7-17) mg/dL Creatinine (0.6-1.2) mg/dL Estimated GFR ml/min BUN/Creatinine Ratio % Glucose (65-100) mg/dL Calcium (8.4-10.2) mg/dL Total Bilirubin (0.1-1.2) mg/dL AST (5-40) units/L ALT (7-56) units/L Alkaline Phosphatase (35-129) units/L Total Protein (6.3-8.2) g/dL Albumin (3.9-5) g/dL Albumin/Globulin Ratio % HCG, Quant (0-4) mIU/mL Urine Color Yellow (Yellow) Urine Turbidity Clear (Clear) Urine pH 7.0 (5.0-7.0) Ur Specific [place] 1.023 (1.003-1.030) Urine Protein <15 mg/dl (Negative) mg/dL Urine Glucose (UA) Neg (Negative) mg/dL Urine Ketones Neg (Negative) mg/dL Urine Blood Neg (Negative) Urine Nitrite Neg (Negative) Urine Bilirubin Neg (Negative) Urine Urobilinogen < 2.0 (<2.0) mg/dL Ur Leukocyte Esterase Neg (Negative) Urine WBC (Auto) 1.0 (0.0-6.0) /HPF Urine RBC (Auto) 1.0 (0.0-6.0) /HPF U Epithel Cells (Auto) 5.0 (0-13.0) /HPF Urine Mucus Few /HPF Urine HCG, Qual Positive A (Negative) - Radiology Data ULTRASOUND OBSTETRIC INDICATION / CLINICAL INFORMATION: pain in . Clinical Gestational Age (GA) in weeks, days: 4, 2 TECHNIQUE: Transabdominal and Transvaginal. COMPARISON: None available. FINDINGS: GESTATIONAL SAC: Not seen YOLK SAC: Not seen EMBRYO/FETUS: Not seen ADNEXA: Within the right adnexa and separate from the right ovary there is a fluid sac measuring approximately 1.7 x 0.6 x 1.7 cm with a average length of 1.3 cm. The bilateral ovaries are unremarkable. FREE FLUID: There is a small amount of free fluid. ADDITIONAL FINDINGS: None. IMPRESSION: 1. No evidence of intrauterine gestation. 2. There is a right adnexal mass which has ultrasound imaging characteristics suggestive of a gestational sac. This has a average diameter 1.3 cm and is concerning for a right adnexal ectopic . CRITICAL RESULT Time of Discovery (PHYS ASST/CDT): 8:30 PM Time of Communication (PHYS ASST/CDT): 8:34 PM Licensed Practitioner Receiving Report: Dr. Guardado Read-Back Performed: Yes. Signer Name: Levi Grace DO Signed: 10/13/2021 9:34 PM Workstation Name: [id number] - Medical Decision Making Dr Em with [facility] ADVERTISING STRATEGIST came and examined the patient personally. The patient's discomfort is actually on the opposite side of the findings from the radiologist. He ultrasounded the patient personally and states that his d ifferential diagnosis is a ruptured corpus luteal cyst versus normal IUP versus tubal versus blighted ovum in that order. The plan is that the patient is to return in 48 hours for repeat beta quant. 1. If the quant is decreasing, either the ruptured luteal cyst or a blighted ovum was actually the issue. 2. If the quant doubles he believes that there is normal IUP present. 3. If the quant rises but not by double an ectopic is likely and repeat ultrasound should be performed Critical care attestation.: If time is entered above; I have spent that time in minutes in the direct care of this critically ill patient, excluding procedure time. ED Disposition Clinical Impression: Encounter for assessment for suspected ectopic Disposition: 01 HOME / SELF CARE / HOMELESS Is pt being admited?: No Does the pt Need Aspirin: No Condition: Stable Instructions: Abdominal Pain (ED) Additional Instructions: The plan is that the patient is to return in 48 hours for repeat beta quant. 1. If the quant is decreasing, either the ruptured luteal cyst or a blighted ovum was actually the issue. 2. If the quant doubles he believes that there is normal IUP present. 3. If the quant rises but not by double an ectopic is likely and r epeat ultrasound should be performed Referrals: [facility] [Provider Group] - 3-5 Days Time of Disposition: 00:06
[2021-10-13 23:53] VITALS: BP 116/76
== END 2021-10-14 00:21 | disposition home or self-care (01) ==
LOC: ED 18:34
DX: O00.90 Unspecified ectopic pregnancy without intrauterine pregnancy (principal); Z3A.00 Weeks of gestation of pregnancy not specified
CPT/HCPCS: 36415; 76801; 76817; 80053; 81001; 81025; 84702; 85025; 99284

== ENCOUNTER 2021-10-15 19:34 | Emergency (ER) | payer MEDICAID ==
--- NOTE | 2021-10-16 05:01 | Emergency Department Report ---
ED General Adult HPI - General Chief complaint: Recheck/Abnormal Lab/Rx Stated complaint: FOLLOW UP/BLOOD WORK Source: patient Mode of arrival: Ambulatory Limitations: No Limitations - History of Present Illness Initial comments: Patient is a A1 26-year-old -[place] female with no past medical history presented to the ED for repeat hCG quant to check the viability of her . Patient states that she is approximately 4 weeks gestation. Patient was initially evaluated in the ED 2 days ago and high hCG quant was 551 and the transvaginal ultrasound did not elicit any intrauterine and was advised to return to the ED within 48 hours for recheck of the hCG quant to ascertain the viability of her . Patient denies abdominal pain, vaginal bleeding, dysuria, urinary frequency and urgency, chest pain, shortness of breath, fever, chills, cough, nausea and vomiting or diarrhea. MD Complaint: Recheck of abnormal HCG Quant -: Sudden, days(s) (2) Location: abdomen Radiation: non-radiation Severity scale (0 -10): 0 Quality: dull Consistency: now resolved Improves with: none Worsens with: none Associated Symptoms: denies other symptoms. denies: confusion, chest pain, cough, diaphoresis, fever/chills, headaches, loss of appetite, malaise, nausea/vomiting, rash, seizure, shortness of breath, syncope, weakness Treatments Prior to Arrival: none - Related Data Home Medications Medication Instructions Recorded Confirmed Last Taken Aspirin [Adult Aspirin] 81 mg PO DAILY 07/25/19 08/04/19 08/04/19 Previous Rx's Medication Instructions Recorded Last Taken Type labetaloL [Labetalol 100mg TAB] 100 mg PO BID #60 tablet 08/04/19 Unknown Rx cephALEXin [Keflex] 500 mg PO BID 7 Days #14 cap 08/08/19 Unknown Rx Vit-Fe Fumar-FA [ 1 tab PO DAILY #60 tab 10/16/21 Unknown Rx Vitamin] Allergies Allergy/AdvReac Type Severity Reaction Status Date / Time Latex, Natural Rubber Allergy Mild Swelling Verified 03/15/20 12:45 ED Review of Systems ROS: Stated complaint: FOLLOW UP/BLOOD WORK Other details as noted in HPI Constitutional: denies: chills, fever Eyes: denies: eye pain, eye discharge, vision change ENT: denies: ear pain, throat pain Respiratory: denies: cough, shortness of breath, wheezing Cardiovascular: denies: chest pain, palpitations Endocrine: no symptoms reported Gastrointestinal: denies: abdominal pain, nausea, vomiting, diarrhea Genitourinary: denies: urgency, dysuria, discharge Musculoskeletal: denies: back pain, joint swelling, arthralgia Skin: denies: rash, lesions Neurological: denies: headache, weakness, paresthesias Psychiatric: denies: anxiety, depression Hematological/Lymphatic: denies: easy bleeding, easy bruising ED Past Medical Hx - Past Medical History Previous Medical History?: Yes Hx Hypertension: Yes (H/o pre-e) Hx Congestive Heart Failure: No Hx Diabetes: No Hx Deep Vein Thrombosis: No Hx Renal Disease: No Hx Sickle Cell Disease: No Hx Seizures: No Hx Asthma: No Hx COPD: No Hx HIV: No - Surgical History Past Surgical History?: No - Social History Smoking Status: Never Smoker Substance Use Type: None - Medications Home Medications: Home Medications Medication Instructions Recorded Confirmed Last Taken Type Aspirin [Adult Aspirin] 81 mg PO DAILY 07/25/19 08/04/19 08/04/19 History labetaloL [Labetalol 100mg TAB] 100 mg PO BID #60 tablet 08/04/19 08/04/19 Unknown Rx cephALEXin [Keflex] 500 mg PO BID 7 Days #14 cap 08/08/19 Unknown Rx Vit-Fe Fumar-FA [ 1 tab PO DAILY #60 tab 10/16/21 Unknown Rx Vitamin] ED Physical Exam - General Limitations: No Limitations General appearance: alert, in no apparent distress - Head Head exam: Present: atraumatic, normocephalic, normal inspection - Eye Eye exam: Present: normal appearance, PERRL, EOMI Pupils: Present: normal accommodation - ENT ENT exam: Present: normal exam, normal orophraynx, mucous membranes moist, TM's normal bilaterally, normal external ear exam - Neck Neck exam: Present: normal inspection, full ROM - Respiratory Respiratory exam: Present: normal lung sounds bilaterally. Absent: respiratory distress, wheezes, rales, rhonchi, chest wall tenderness, accessory muscle use, decreased breath sounds, prolonged expiratory - Cardiovascular Cardiovascular Exam: Present: regular rate, normal rhythm, normal heart sounds. Absent: systolic murmur, diastolic murmur, rubs, gallop - GI/Abdominal GI/Abdominal exam: Present: soft, normal bowel sounds. Absent: tenderness, guarding, rebound, hyperactive bowel sounds, hypoactive bowel sounds, organomegaly - Extremities Exam Extremities exam: Present: normal inspection, full ROM, normal capillary refill. Absent: tenderness, pedal edema, joint swelling - Back Exam Back exam: Present: normal inspection, full ROM. Absent: tenderness, CVA tenderness (R), CVA tenderness (L), muscle spasm, paraspinal tenderness, vertebral tenderness - Neurological Exam Neurological exam: Present: alert, oriented X3, CN II-XII intact, normal gait, reflexes normal - Psychiatric Psychiatric exam: Present: normal affect, normal mood - Skin Skin exam: Present: warm, dry, intact, normal color. Absent: rash ED Course Vital Signs 10/15/21 21:26 Temperature 98.0 F Pulse Rate 70 Respiratory 18 Rate Blood Pressure 133/56 O2 Sat by Pulse 98 Oximetry ED Medical Decision Making - Radiology Data Radiology results: report reviewed, image reviewed Transvaginal ultrasound showed a single intrauterine gestational sac compatible with very early of 5 weeks and 1 day with estimated delivery date of June 17, 2022. No identified pole or yolk sac was seen. It also showed right ovarian cyst which is thought to reflect corpus luteum cyst, measuring 3.5 x 2.6 x 3.7 cm. - Medical Decision Making This is a A1 26-year-old -[place] female with no past medical history presented to the ED for repeat hCG quant to check the viability of her . Patient states that she is approximately 4 weeks gestation. Patient was initially evaluated in the ED 2 days ago and high hCG quant was 551 and the transvaginal ultrasound did not elicit any intrauterine and was advised to return to the ED within 48 hours for recheck of the hCG quant to ascertain the viability of her . In the ED, patient is alert and oriented x3 and is not in any distress. Repeat hCG quant showed hCG quant of 1197 compared to hCG quant 2 days ago which was 551. Transvaginal ultrasound showed a single intrauterine gestational sac compatible with very early of 5 weeks and 1 day with estimated delivery date of June 17, 2022. No identified pole or yolk sac was seen. It also showed right ovarian cyst which is thought to reflect corpus luteum cyst, measuring 3.5 x 2.6 x 3.7 cm. Patient was therefore discharged home and advised to maintain a complete pelvic rest, and follow-up with MULT[employer] AUTHORING SPECIALIST physician in 5 to 7 days for reevaluation or return to the ED immediately if symptoms get worse. - Differential Diagnosis Early ; ectopic ; ovarian cyst; Critical care attestation.: If time is entered above; I have spent that time in minutes in the direct care of this critically ill patient, excluding procedure time. ED Disposition Clinical Impression: at early stage Disposition: 01 HOME / SELF CARE / HOMELESS Is pt being admited?: No Does the pt Need Aspirin: No Condition: Stable Instructions: How a Baby Grows During , First Trimester of Additional Instructions: Maintain a complete pelvic rest with no heavy lifting or strenuous physical activities or sexual activity. Take Tylenol as needed for pain. Return to the ED immediately if symptoms get worse. Follow-up with your MULTIMEDIA AUTHORING SPECIALIST physician in 5 to 7 days for reevaluation. Prescriptions: Vit-Fe Fumar-FA [ Vitamin] 1 tab PO DAILY #60 tab Referrals: GILMA MORGAN MD [Primary Care Provider] - 3-5 Days LAN ALVAREZ MD [Staff Physician] - 3-5 Days Forms: Work/School Release Form(ED) Time of Disposition: 05:02 Print Language: BRITISH
[2021-10-16 06:06] VITALS: BP 124/78
--- NOTE | 2021-10-19 08:22 | Ultrasound Report ---
ULTRASOUND OBSTETRIC INDICATION / CLINICAL INFORMATION: Pelvic pain: : r/o Ectopic . Clinical Gestational Age (GA) in weeks, days: 4, 5 TECHNIQUE: Transvaginal. COMPARISON: None available. FINDINGS: GESTATIONAL SAC: Single small intrauterine sac no evidence of pole yolk sac. Based on sac size of 0.4 cm, the estimated gestational age is 5 weeks 1 day with estimated date of delivery 06/17/2022. YOLK SAC: None EMBRYO/FETUS: None - [place] Length = cm = weeks, days - Heart Rate, beats per minute (if present) = ADNEXA: Right ovary 3.5 x 2.6 x 3.7 cm. Small simple right ovarian cyst. Left ovary 2.1 x 1.2 x 2.1 c m. FREE FLUID: None. ADDITIONAL FINDINGS: None. IMPRESSION: 1. Single intrauterine gestational sac compatible with very early no identified pole or yolk sac. Short-term follow-up and/or surveillance of beta hCG doubling time may be useful. 2. Right ovarian cyst thought to reflect corpus luteum cyst. Signer Name: Emilio Small II, MD Signed: 10/16/2021 2:58 AM Workstation Name: [id number]
== END 2021-10-16 06:08 | disposition home or self-care (01) ==
LOC: ED 19:34
DX: Z34.01 Encounter for supervision of normal first pregnancy, first trimester (principal); Z3A.01 Less than 8 weeks gestation of pregnancy; I10 Essential (primary) hypertension; Z91.040 Latex allergy status; Z79.899 Other long term (current) drug therapy
CPT/HCPCS: 36415; 76817; 84702; 99283; 99284

== ENCOUNTER 2022-03-31 15:20 | Outpatient (CLI) | payer MEDICAID | END 2022-03-31 18:45 | disposition home or self-care (01) | LOC: LAB 15:20 → APU 17:59 → LAB 18:45 | PROVIDERS: ATTEND Obstetrics & Gynecology | DX: O26.893 Other specified pregnancy related conditions, third trimester (principal); O13.3 Gestational [pregnancy-induced] hypertension without significant proteinuria, third trimester; O99.213 Obesity complicating pregnancy, third trimester; E66.01 Morbid (severe) obesity due to excess calories; Z67.41 Type O blood, Rh negative; Z3A.28 28 weeks gestation of pregnancy | CPT/HCPCS: 86850; 86900; 86901; 96372; J2790 ==